=== PATIENT | male | born 1935 | race Caucasian/White ===

== ENCOUNTER 2024-06-08 18:36 | Inpatient (IN) ==
[2024-06-08 19:23] LABS: Hematocrit (blood only) 47.8 % (42.0-52.0); Hemoglobin 16.4 g/dl (14.0-18.0); Mean Corpuscular Hemoglobin 31.8 pg (25.0-34.0); Mean Corpuscular Hgb Conc 34.3 g/dL (32.0-36.0); Mean Corpuscular Volume 92.6 fL (80.0-100.0); Mean Platelet Volume 10.1 fL (9.4-12.4); Platelet Count 197 K/uL (130-400); RDW Coefficient of Variation 13.3 % (11.5-14.5); RDW Standard Deviation 45.2 fL (36.4-46.3); Red Blood Count 5.16 M/uL (4.70-6.10); White Blood Count 5.17 K/ul (4.8-10.8)
[2024-06-08 19:49] LABS: Partial Thromboplastin Time 26 Seconds (21-31); Prothrombin Time 10.8 Seconds (9.0-12.0)
[2024-06-08 19:52] LABS: Alanine Aminotransferase 20 U/L (7-52); Albumin Globulin Ratio 1.6 (0.9-2); Albumin Level 4.2 gm/dl (3.4-5.0); Alkaline Phosphatase 80 U/L (34-104); Anion Gap 7 (3-11); BUN Creatinine Ratio 26.2 (10-20); Bilirubin,Total 0.7 mg/dl (0.2-1.0); Blood Urea Nitrogen 28 mg/dl (6-23); Calcium 9.5 mg/dl (8.6-10.3); Carbon Dioxide 27 mmol/L (21-32); Chloride 95 mmol/L (98-107); Globulin 2.7 gm/dl (2.5-4.0); Glucose 373 mg/dl (70-99(Fasting)); Sodium 129 mmol/L (136-145); Total Protein 6.9 gm/dl (6.0-8.3)
[2024-06-08 23:30] LABS: Potassium 4.6 mmol/L (3.5-5.1)
--- NOTE | 2024-06-08 23:41 | CT Scan Report ---
Exam(s): CT HEAD Without Contrast EXAM: CT Head Without Intravenous Contrast CLINICAL HISTORY: Reason for exam: Neuro deficit, acute, stroke suspected. TECHNIQUE: Axial computed tomography images of the head/brain without intravenous contrast. CTDI is 35.65 mGy and DLP is 624.41 mGy-cm. Automated exposure control was utilized for the study. A dose lowering technique was utilized adhering to the principles of ALARA. COMPARISON: Head CT 08/05/2023 FINDINGS: Brain: No intracranial hemorrhage, mass-effect, or cerebral edema. Global parenchymal atrophy. Periventricular low-attenuation likely representing chronic microvascular ischemic changes. Chronic infarcts within the right cerebellum. Ventricles: Unremarkable. Bones/joints: Unremarkable. No fracture. Soft tissues: Unremarkable. Sinuses: No acute sinusitis. Mastoid air cells: Unremarkable as visualized. IMPRESSION: 1. No acute intracranial abnormality. Electronically signed by: Tramaine Sow MD 06/08/24 23:40 PM
[2024-06-08] MEDS: SODIUM CHLORIDE 0.9% 1,000 ML IV SCH (23:44)
[2024-06-09] MEDS: NovoLIN-R INSULIN PER UNIT CHARGE IV STA (00:41)
[2024-06-09] MEDS ORDERED: DEXTROSE 50% 50 ML SYRINGE IV PRN (02:56)
[2024-06-09] MEDS ORDERED: GLUCOSE 10 TAB/TUBE PO PRN (02:56)
[2024-06-09] MEDS ORDERED: PHARMACIST DISCHARGE MED REC CONSULT PRN (02:56)
[2024-06-09] MEDS ORDERED: CARBOHYDRATES FOR HYPOGLYCEMIA PO PRN (02:56)
[2024-06-09] MEDS ORDERED: GLUCAGON FOR INJ 1 MG VIAL SQ PRN (02:56)
[2024-06-09] MEDS ORDERED: GLUCOSE 40% GEL 15 GM TUBE PO PRN (02:56)
--- NOTE | 2024-06-09 03:24 | Emergency Department Note ---
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 He states he is having difficulty with his grasp. He woke up feeling that the arm was numb, and has not really changed for most of the day. He is able to use the left hand to grab things however he has to focus and does not feel that his drop wire hanger strength is at baseline. He does have some limited range of motion of the left shoulder. He does not have any facial weakness or speech difficulty. He denies any confusion, recent falls or injuries. REVIEW OF SYSTEMS: A review of systems was performed with positives and pertinent negatives listed in the history of present illness. 10 systems were reviewed and are otherwise negative. ALLERGIES: see below MEDICATIONS: see below PMH: see below SOCIAL HISTORY: see below DDx: Stroke, TIA, brachial plexus injury, arthritis, intracranial hemorrhage, intracranial mass, seizure among others. PHYSICAL EXAM: Vital signs reviewed. General: Well-appearing 88 yo male, in no significant distress. HEENT: No scleral icterus, PERRLA, neck supple. Atraumatic. Cardiovascular: Regular rate and rhythm, no extra sounds. Pulmonary: Clear to auscultation bilaterally, normal work of breathing. Abdomen: Soft, nontender, nondistended, positive bowel sounds. Musculoskeletal: Atraumatic, no peripheral edema. Neurologic: Patient awake alert and oriented x 3, speech is deliberate but clear. Intact finger to nose, negative pronator drift. Slight decrease drop wire hanger strength on L, but otherwise equal strength in 4 extremities. Skin: Warm, dry, no rash EMERGENCY DEPARTMENT COURSE/MDM: This pt was evaluated and appeared to be in no distress. IV access was obtained and lab work was drawn. Pt was placed on the child monitor and noted to be in a NSR w first degree AV block. CXR reveals nothing acute, but the R infrahilar mass is again noted. Head CT is negative for acute process. CXR is significant for R lung mass. EKG reveals no acute ischemia. Pt's story is concerning for TIA vs stroke. He does not appear to be a thrombolytic candidate at this time as symptoms are largely improved and are limited to L slight drop wire hanger strength. I did explain my findings and recommendations for hospitalization, which pt has agreed to. Pt will be evaluated by the hospitalist service for further management. MONITORING: An order for cardiac monitoring was placed and the patient is noted to be in a beats per minute. RADIOLOGY: CXR to my interpretation and rad overread is negative for acute process, R lung mass noted. IMPRESSION: 1. No acute cardiopulmonary findings. 2. Redemonstration of a right infrahilar mass-like opacity which corresponds to the known neoplasm, better depicted on prior PET/CT. CT head: IMPRESSION: 1. No acute intracranial abnormality. EKG: to my interpretation reveals a sinus rhythm with first degree AV block at 74 bpm. Previous inf infarct noted. QTc 424. 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" Dry eye syndrome Prostate cancer Sleep apnea Coronary artery disease Hyperlipidemia Melanoma Hypertension Diabetes Surgical History History of hemorrhoidectomy H/O right inguinal hernia repair S/P colonoscopy History of cataract surgery Bilateral S/P appendectomy History of tonsillectomy History of surgery Surgery both eyes for "droopy eyes" H/O prostatectomy History of cholecystectomy History of open heart surgery Triple bypass surgery Status post Mohs surgery 09/30/21 H/O angioplasty Family History Mother , in her 90s Fall Stroke associated with fall Father , in his 60s Lung cancer Smoker Brother Myocardial infarction Son No problems noted. 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 Feels Safe at Home: Yes Diet: regular caffeine: Yes (2 cups/day - decaf) during the past year weight has: remained stable Assistive Devices: Walker Allergies Allergies Allergy/AdvReac Type Severity Reaction Status Date / Time morphine Allergy Unknown Verified 06/08/24 23:31 Home Meds Home Medications Medication Instructions Recorded Confirmed atorvastatin 10 mg tablet 10 mg PO DAILY 09/08/23 06/08/24 metoprolol succinate 25 mg 25 mg PO DAILY 09/08/23 06/08/24 tablet,extended release 24 hr ganciclovir 0.15 % eye gel (Zirgan) 1 drp ophthalmic (eye) HS 10/04/23 06/08/24 metformin 500 mg tablet 500 mg PO TID 10/04/23 06/08/24 nateglinide 60 mg tablet 60 mg PO TID 10/04/23 06/08/24 nitroglycerin 0.4 mg sublingual 0.4 mg sublingual Q5M PRN Chest 10/04/23 06/08/24 tablet Pain timolol 0.5 % eye drops 1 drp OPL BID 10/04/23 06/08/24 cetirizine 10 mg capsule (Zyrtec) 10 mg PO DAILY 03/06/24 06/08/24 lisinopril 10 mg tablet 10 mg PO DAILY 03/06/24 06/08/24 aspirin 325 mg tablet 325 mg PO DAILY 06/08/24 06/08/24 famciclovir 500 mg tablet 500 mg PO DAILY 06/08/24 06/08/24 Results & Data (ED) Vital Signs Vital Signs - 24 hr 06/10/24 10:52 06/10/24 10:52 06/10/24 15:03 Temperature 36.5 C Temperature Source Oral Pulse Rate 79 Pulse Rate [Apical] 82 Respiratory Rate 19 Blood Pressure [Left Arm] 101/66 Blood Pressure Mean [Left Arm] 77 Blood Pressure Position [Left Arm] Lying Pulse Oximetry 90 Oxygen Delivery Method Room Air EWS Level of Consciousness - Last Result Spontaneously Alert EWS Temperature - Last Result 36.4 EWS Respiratory Rate - Last Result 18 EWS Oxygen Saturation - Last Result 95 EWS Oxygen in Use - Last Result No EWS Score 2 EWS Clinical Risk Low Risk 06/10/24 15:50 06/10/24 15:50 Temperature 36.5 C Temperature Source Oral Pulse Rate Pulse Rate [Apical] 81 Respiratory Rate 19 Blood Pressure [Left Arm] 126/77 Blood Pressure Mean [Left Arm] 93 Blood Pressure Position [Left Arm] Lying Pulse Oximetry 96 Oxygen Delivery Method Room Air EWS Level of Consciousness - Last Result Spontaneously Alert EWS Temperature - Last Result 36.5 EWS Respiratory Rate - Last Result 19 EWS Oxygen Saturation - Last Result 90 EWS Oxygen in Use - Last Result No EWS Score 4 EWS Clinical Risk Moderate Risk Home Medications Current Medication List: was personally reviewed by me Laboratory Data Attestation: I reviewed the patient's lab results. 06/11/24 06:19 06/11/24 06:19 Lab Results 06/08/24 06/08/24 06/08/24 Range/Units 19:04 22:46 23:41 WBC 5.17 (4.8-10.8) K/ul RBC 5.16 (4.70-6.10) M/uL Hgb 16.4 (14.0-18.0) g/dl Hct 47.8 (42.0-52.0) % MCV 92.6 (80.0-100.0) fL MCH 31.8 (25.0-34.0) pg MCHC 34.3 (32.0-36.0) g/dL RDW Std Deviation 45.2 (36.4-46.3) fL RDW Coeff of Courtney 13.3 (11.5-14.5) % Plt Count 197 (130-400) K/uL MPV 10.1 (9.4-12.4) fL Immature Gran % (Auto) % Neut % (Auto) % Lymph % (Auto) % Dickson % (Auto) % Eos % (Auto) % Baso % (Auto) % Neut # (Auto) (1.40-6.50) K/uL Lymph # (Auto) (1.20-3.40) K/uL Dickson # (Auto) (0.11-0.59) K/uL Eos # (Auto) (0.00-0.50) K/uL Baso # (Auto) (0.00-0.20) K/uL Immature Gran # (Auto) (0.01-0.20) K/uL PT 10.8 (9.0-12.0) Seconds INR 1.0 (0.9-1.1) APTT 26 (21-31) Seconds PTT Ratio 1.0 Sodium 129 L (136-145) mmol/L Potassium TNP 4.6 Chloride 95 L (98-107) mmol/L Carbon Dioxide 27 (21-32) mmol/L Anion Gap 7 (3-11) BUN 28 H (6-23) mg/dl Creatinine 1.07 (0.6-1.4) mg/dl Est Cr Clr Drug Dosing Not Reportable eGFR 67.58 BUN/Creatinine Ratio 26.2 H (10-20) Glucose 373 H* (70-99(Fasting)) mg/dl POC Glucose 257 H (70-99) mg/dl Estimat Average Glucose mg/dl Hemoglobin A1c (4.5-5.6) % Calcium 9.5 (8.6-10.3) mg/dl Magnesium 2.0 (1.7-2.4) mg/dl Total Bilirubin 0.7 (0.2-1.0) mg/dl AST TNP 18 ALT 20 (7-52) U/L Alkaline Phosphatase 80 (34-104) U/L Total Protein 6.9 (6.0-8.3) gm/dl Albumin 4.2 (3.4-5.0) gm/dl Globulin 2.7 (2.5-4.0) gm/dl Albumin/Globulin Ratio 1.6 (0.9-2) Triglycerides (0-150) mg/dl Cholesterol (0-200) mg/dl LDL Cholesterol, Calc mg/dl VLDL Cholesterol, Calc (0-30) mg/dl HDL Cholesterol mg/dl Cholesterol/HDL Ratio (0-5) 06/09/24 06/09/24 06/09/24 Range/Units 02:20 05:47 07:54 WBC 4.22 L (4.8-10.8) K/ul RBC 5.03 (4.70-6.10) M/uL Hgb 16.3 (14.0-18.0) g/dl Hct 45.6 (42.0-52.0) % MCV 90.7 (80.0-100.0) fL MCH 32.4 (25.0-34.0) pg MCHC 35.7 (32.0-36.0) g/dL RDW Std Deviation 43.6 (36.4-46.3) fL RDW Coeff of Courtney 13.2 (11.5-14.5) % Plt Count 174 (130-400) K/uL MPV 9.8 (9.4-12.4) fL Immature Gran % (Auto) 0.7 % Neut % (Auto) 52.6 % Lymph % (Auto) 25.1 % Dickson % (Auto) 16.1 % Eos % (Auto) 5.0 % Baso % (Auto) 0.5 % Neut # (Auto) 2.22 (1.40-6.50) K/uL Lymph # (Auto) 1.06 L (1.20-3.40) K/uL Dickson # (Auto) 0.68 H (0.11-0.59) K/uL Eos # (Auto) 0.21 (0.00-0.50) K/uL Baso # (Auto) 0.02 (0.00-0.20) K/uL Immature Gran # (Auto) 0.03 (0.01-0.20) K/uL PT (9.0-12.0) Seconds INR (0.9-1.1) APTT (21-31) Seconds PTT Ratio Sodium 137 (136-145) mmol/L Potassium 3.9 Chloride 100 (98-107) mmol/L Carbon Dioxide 30 (21-32) mmol/L Anion Gap 7 (3-11) BUN 23 (6-23) mg/dl Creatinine 0.95 (0.6-1.4) mg/dl Est Cr Clr Drug Dosing 61.3 eGFR 77.95 BUN/Creatinine Ratio 24.2 H (10-20) Glucose 210 H (70-99(Fasting)) mg/dl POC Glucose 195 H 192 H (70-99) mg/dl Estimat Average Glucose 209 mg/dl Hemoglobin A1c 8.9 H (4.5-5.6) % Calcium 9.2 (8.6-10.3) mg/dl Magnesium (1.7-2.4) mg/dl Total Bilirubin (0.2-1.0) mg/dl AST ALT (7-52) U/L Alkaline Phosphatase (34-104) U/L Total Protein (6.0-8.3) gm/dl Albumin (3.4-5.0) gm/dl Globulin (2.5-4.0) gm/dl Albumin/Globulin Ratio (0.9-2) Triglycerides 92 (0-150) mg/dl Cholesterol 85 (0-200) mg/dl LDL Cholesterol, Calc 32 mg/dl VLDL Cholesterol, Calc 18 (0-30) mg/dl HDL Cholesterol 35 mg/dl Cholesterol/HDL Ratio 2.4 (0-5) 06/09/24 06/09/24 06/09/24 Range/Units 11:38 16:21 20:10 WBC (4.8-10.8) K/ul RBC (4.70-6.10) M/uL Hgb (14.0-18.0) g/dl Hct (42.0-52.0) % MCV (80.0-100.0) fL MCH (25.0-34.0) pg MCHC (32.0-36.0) g/dL RDW Std Deviation (36.4-46.3) fL RDW Coeff of Courtney (11.5-14.5) % Plt Count (130-400) K/uL MPV (9.4-12.4) fL Immature Gran % (Auto) % Neut % (Auto) % Lymph % (Auto) % Dickson % (Auto) % Eos % (Auto) % Baso % (Auto) % Neut # (Auto) (1.40-6.50) K/uL Lymph # (Auto) (1.20-3.40) K/uL Dickson # (Auto) (0.11-0.59) K/uL Eos # (Auto) (0.00-0.50) K/uL Baso # (Auto) (0.00-0.20) K/uL Immature Gran # (Auto) (0.01-0.20) K/uL PT (9.0-12.0) Seconds INR (0.9-1.1) APTT (21-31) Seconds PTT Ratio Sodium (136-145) mmol/L Potassium Chloride (98-107) mmol/L Carbon Dioxide (21-32) mmol/L Anion Gap (3-11) BUN (6-23) mg/dl Creatinine (0.6-1.4) mg/dl Est Cr Clr Drug Dosing eGFR BUN/Creatinine Ratio (10-20) Glucose (70-99(Fasting)) mg/dl POC Glucose 243 H 137 H 197 H (70-99) mg/dl Estimat Average Glucose mg/dl Hemoglobin A1c (4.5-5.6) % Calcium (8.6-10.3) mg/dl Magnesium (1.7-2.4) mg/dl Total Bilirubin (0.2-1.0) mg/dl AST ALT (7-52) U/L Alkaline Phosphatase (34-104) U/L Total Protein (6.0-8.3) gm/dl Albumin (3.4-5.0) gm/dl Globulin (2.5-4.0) gm/dl Albumin/Globulin Ratio (0.9-2) Triglycerides (0-150) mg/dl Cholesterol (0-200) mg/dl LDL Cholesterol, Calc mg/dl VLDL Cholesterol, Calc (0-30) mg/dl HDL Cholesterol mg/dl Cholesterol/HDL Ratio (0-5) 06/10/24 06/10/24 06/10/24 Range/Units 06:04 08:28 11:44 WBC 4.61 L (4.8-10.8) K/ul RBC 4.84 (4.70-6.10) M/uL Hgb 15.5 (14.0-18.0) g/dl Hct 43.4 (42.0-52.0) % MCV 89.7 (80.0-100.0) fL MCH 32.0 (25.0-34.0) pg MCHC 35.7 (32.0-36.0) g/dL RDW Std Deviation 42.8 (36.4-46.3) fL RDW Coeff of Courtney 13.0 (11.5-14.5) % Plt Count 172 (130-400) K/uL MPV 9.9 (9.4-12.4) fL Immature Gran % (Auto) 0.4 % Neut % (Auto) 57.5 % Lymph % (Auto) 24.1 % Dickson % (Auto) 14.5 % Eos % (Auto) 3.3 % Baso % (Auto) 0.2 % Neut # (Auto) 2.65 (1.40-6.50) K/uL Lymph # (Auto) 1.11 L (1.20-3.40) K/uL Dickson # (Auto) 0.67 H (0.11-0.59) K/uL Eos # (Auto) 0.15 (0.00-0.50) K/uL Baso # (Auto) 0.01 (0.00-0.20) K/uL Immature Gran # (Auto) 0.02 (0.01-0.20) K/uL PT (9.0-12.0) Seconds INR (0.9-1.1) APTT (21-31) Seconds PTT Ratio Sodium 137 (136-145) mmol/L Potassium 3.8 Chloride 103 (98-107) mmol/L Carbon Dioxide 28 (21-32) mmol/L Anion Gap 6 (3-11) BUN 20 (6-23) mg/dl Creatinine 0.85 (0.6-1.4) mg/dl Est Cr Clr Drug Dosing 68.6 eGFR 84.62 BUN/Creatinine Ratio 23.5 H (10-20) Glucose 151 H (70-99(Fasting)) mg/dl POC Glucose 141 H 218 H (70-99) mg/dl Estimat Average Glucose mg/dl Hemoglobin A1c (4.5-5.6) % Calcium 9.0 (8.6-10.3) mg/dl Magnesium (1.7-2.4) mg/dl Total Bilirubin (0.2-1.0) mg/dl AST ALT (7-52) U/L Alkaline Phosphatase (34-104) U/L Total Protein (6.0-8.3) gm/dl Albumin (3.4-5.0) gm/dl Globulin (2.5-4.0) gm/dl Albumin/Globulin Ratio (0.9-2) Triglycerides (0-150) mg/dl Cholesterol (0-200) mg/dl LDL Cholesterol, Calc mg/dl VLDL Cholesterol, Calc (0-30) mg/dl HDL Cholesterol mg/dl Cholesterol/HDL Ratio (0-5) 06/10/24 Range/Units 16:36 WBC (4.8-10.8) K/ul RBC (4.70-6.10) M/uL Hgb (14.0-18.0) g/dl Hct (42.0-52.0) % MCV (80.0-100.0) fL MCH (25.0-34.0) pg MCHC (32.0-36.0) g/dL RDW Std Deviation (36.4-46.3) fL RDW Coeff of Courtney (11.5-14.5) % Plt Count (130-400) K/uL MPV (9.4-12.4) fL Immature Gran % (Auto) % Neut % (Auto) % Lymph % (Auto) % Dickson % (Auto) % Eos % (Auto) % Baso % (Auto) % Neut # (Auto) (1.40-6.50) K/uL Lymph # (Auto) (1.20-3.40) K/uL Dickson # (Auto) (0.11-0.59) K/uL Eos # (Auto) (0.00-0.50) K/uL Baso # (Auto) (0.00-0.20) K/uL Immature Gran # (Auto) (0.01-0.20) K/uL PT (9.0-12.0) Seconds INR (0.9-1.1) APTT (21-31) Seconds PTT Ratio Sodium (136-145) mmol/L Potassium Chloride (98-107) mmol/L Carbon Dioxide (21-32) mmol/L Anion Gap (3-11) BUN (6-23) mg/dl Creatinine (0.6-1.4) mg/dl Est Cr Clr Drug Dosing eGFR BUN/Creatinine Ratio (10-20) Glucose (70-99(Fasting)) mg/dl POC Glucose 206 H (70-99) mg/dl Estimat Average Glucose mg/dl Hemoglobin A1c (4.5-5.6) % Calcium (8.6-10.3) mg/dl Magnesium (1.7-2.4) mg/dl Total Bilirubin (0.2-1.0) mg/dl AST ALT (7-52) U/L Alkaline Phosphatase (34-104) U/L Total Protein (6.0-8.3) gm/dl Albumin (3.4-5.0) gm/dl Globulin (2.5-4.0) gm/dl Albumin/Globulin Ratio (0.9-2) Triglycerides (0-150) mg/dl Cholesterol (0-200) mg/dl LDL Cholesterol, Calc mg/dl VLDL Cholesterol, Calc (0-30) mg/dl HDL Cholesterol mg/dl Cholesterol/HDL Ratio (0-5) Administered Medications Clopidogrel Bisulfate (Clopidogrel Bisulfate 75 Mg Tab) 75 mg PO QAM TERRI Stop: 07/09/24 08:59 Last Admin: 06/11/24 08:36 Dose: 75 mg Documented By: Admin: 06/10/24 08:23 Dose: 75 mg Documented By: Admin: 06/09/24 09:09 Dose: 75 mg Documented By: CHRIS Insulin Aspart (Insulin Aspart Per Unit Charge) 0 units SC ACHS TERRI Stop: 07/09/24 07:29 Last Admin: 06/11/24 20:23 Dose: 4 units Documented By: MADELEINE Co-signed By: GABE Admin: 06/11/24 17:34 Dose: 3 units Documented By: Co-signed By: DANA Admin: 06/11/24 12:48 Dose: 3 units Documented By: Co-signed By: SHAUNNA Admin: 06/11/24 08:33 Dose: 6 units Documented By: Co-signed By: PAMELA Admin: 06/10/24 20:36 Dose: 2 units Documented By: MADELEINE Co-signed By: MIKE Admin: 06/10/24 17:00 Dose: 4 units Documented By: CHRIS Co-signed By: ANTOLIN Admin: 06/10/24 12:19 Dose: 6 units Documented By: CHRIS Co-signed By: EDGAR Admin: 06/10/24 08:51 Dose: 3 units Documented By: CHRIS Co-signed By: EDGAR Admin: 06/09/24 20:30 Dose: 2 units Documented By: MADELEINE Co-signed By: GABE Admin: 06/09/24 17:03 Dose: 3 units Documented By: CHRIS Co-signed By: ANTOLIN Admin: 06/09/24 12:04 Dose: 6 units Documented By: CHRIS Co-signed By: ANTOLIN Admin: 06/09/24 08:24 Dose: 5 units Documented By: CHRIS Co-signed By: HERO Insulin Glargine (Lantus Per Unit Charge) 5 units SQ BID TERRI Stop: 07/09/24 02:55 Last Admin: 06/11/24 20:23 Dose: 5 units Documented By: MADELEINE Co-signed By: GABE Admin: 06/11/24 08:33 Dose: 5 units Documented By: Co-signed By: PAMELA Admin: 06/10/24 20:37 Dose: 5 units Documented By: MADELEINE Co-signed By: MIKE Admin: 06/10/24 08:51 Dose: 5 units Documented By: CHRIS Co-signed By: EDGAR Admin: 06/09/24 20:30 Dose: 5 units Documented By: MADELEINE Co-signed By: GABE Admin: 06/09/24 08:23 Dose: 5 units Documented By: CHRIS Co-signed By: HERO Admin: 06/09/24 04:46 Dose: 5 units Documented By: VALORIE Co-signed By: DANNA Lynn (Order Awaiting Action: Famciclovir 500 Mg Tablet) 1 each N/A QS TERRI Stop: 07/09/24 07:59 Last Admin: 06/11/24 23:08 Dose: Not Given Documented By: Admin: 06/11/24 15:54 Dose: Not Given Documented By: Admin: 06/11/24 08:36 Dose: Not Given Documented By: Admin: 06/10/24 23:28 Dose: Not Given Documented By: Admin: 06/10/24 15:36 Dose: Not Given Documented By: Admin: 06/10/24 08:56 Dose: Not Given Documented By: Admin: 06/10/24 00:04 Dose: Not Given Documented By: Admin: 06/09/24 16:06 Dose: Not Given Documented By: Admin: 06/09/24 10:20 Dose: Not Given Documented By: CHRIS Lynn (Order Awaiting Action: Ganciclovir [Zirgan] 0.15 % Gel) 1 each N/A QS TERRI Stop: 07/09/24 07:59 Last Admin: 06/11/24 23:09 Dose: Not Given Documented By: TKTara Admin: 06/11/24 15:54 Dose: Not Given Documented By: Admin: 06/11/24 08:36 Dose: Not Given Documented By: Admin: 06/10/24 23:28 Dose: Not Given Documented By: Admin: 06/10/24 15:36 Dose: Not Given Documented By: Admin: 06/10/24 08:57 Dose: Not Given Documented By: Admin: 06/10/24 00:04 Dose: Not Given Documented By: Admin: 06/09/24 16:06 Dose: Not Given Documented By: Admin: 06/09/24 10:20 Dose: Not Given Documented By: CHRIS Polyethylene Glycol (Polyethylene (Miralax) 17 Gm Pack) 17 gm PO DAILY PRN PRN Reason: Constipation Stop: 07/11/24 19:08 Last Admin: 06/11/24 21:02 Dose: 17 gm Documented By: MADELEINE Senna/Docusate Sodium (Docusate Sodium/Senna 50/8.6mg Tab) 1 tab PO QAM [facility] Stop: 07/10/24 16:44 Last Admin: 06/11/24 08:51 Dose: 1 tab Documented By: Admin: 06/10/24 17:00 Dose: 1 tab Documented By: CHRIS Discontinued Medications Aspirin (Aspirin 81 Mg Ectab) 81 mg PO DAILY [facility] Stop: 07/09/24 08:59 Last Admin: 06/10/24 08:23 Dose: 81 mg Documented By: Admin: 06/09/24 09:10 Dose: 81 mg Documented By: CHRIS Atorvastatin Calcium (Atorvastatin 40 Mg Tab) 40 mg PO DAILY [facility] Stop: 07/09/24 08:59 Last Admin: 06/11/24 08:37 Dose: 40 mg Documented By: Admin: 06/10/24 08:23 Dose: 40 mg Documented By: Admin: 06/09/24 09:10 Dose: 40 mg Documented By: CHRIS Gadobutrol (Gadobutrol 65ml Vial) 8 ml IV ONCE ONE Stop: 06/09/24 10:04 Last Admin: 06/09/24 10:03 Dose: 8 ml Documented By: LATIA Sodium Chloride (Nss) 1,000 mls @ 80 mls/hr IV .[id number] [facility] Stop: 07/08/24 23:14 Last Infusion: 06/09/24 04:55 Dose: Infused Documented By: Admin: 06/08/24 23:44 Dose: 80 mls/hr Documented By: VALORIE Insulin Human Regular (Novolin-R Insulin Per Unit Charge) 6 units IV NOW STA Stop: 06/08/24 23:12 Last Admin: 06/09/24 00:41 Dose: 6 units Documented By: VALOIRE Co-signed By: JT Imaging Data Radiologist's Impression: Head CT 06/08/24 18:57 Exam(s): CT HEAD Without Contrast EXAM: CT Head Without Intravenous Contrast CLINICAL HISTORY: Reason for exam: Neuro deficit, acute, stroke suspected. TECHNIQUE: Axial computed tomography images of the head/brain without intravenous contrast. CTDI is 35.65 mGy and DLP is 624.41 mGy-cm. Automated exposure control was utilized for the study. A dose lowering technique was utilized adhering to the principles of ALARA. COMPARISON: Head CT 08/05/2023 FINDINGS: Brain: No intracranial hemorrhage, mass-effect, or cerebral edema. Global parenchymal atrophy. Periventricular low-attenuation likely representing chronic microvascular ischemic changes. Chronic infarcts within the right cerebellum. Ventricles: Unremarkable. Bones/joints: Unremarkable. No fracture. Soft tissues: Unremarkable. Sinuses: No acute sinusitis. Mastoid air cells: Unremarkable as visualized. IMPRESSION: 1. No acute intracranial abnormality. Electronically signed by: Tramaine Sow MD 06/08/24 23:40 PM Discharge Plan Visit Data Chief Complaint: TIA Symptoms Stated Complaint: LOW BLOODPRESSURE, LOW OX, LT HAND ED Provider: Mia Addison Discharge Problem: Stroke-like symptoms Patient Disposition: Admitted As Inpatient Discharge Instructions Interventions: ED Discharge Assessment Last Done: 06/09/24 04:53
--- NOTE | 2024-06-09 03:50 | History & Physical Report ---
Date of Service June 09, 2024 Assessment & Plan (1) Stroke-like symptom: Plan: 88yo male with history of HTN, HLP, DM and CAD presenting with weakness of left hand. Remainder of neurological exam is unremarkable Concern for possible CVA vs peripheral radiculopathy -Observation to medical with telemetry -Neuro checks and NIHSS per protocol -Check MRI brain -Check 2D echo -Lipid panel and HgbA1C -PT/OT evaluation -Continue ASA - will change from 325mg daily to 81mg daily -Plavix 75mg daily -Increase Atorvastatin to 40mg daily Plan Chronic Medical Conditions: HTN -Hold antihypertensive agents, Lisinopril, Metoprolol Diabetes -Hold Metformin and Nateglinide -Lantus 5u BID -ISS Admission and Anticipated Discharge Date Admission Date: June 09, 2024 History of Present Illness Chief Complaint: left hand numbness Primary Care Provider: Juan Alberto Valdez MD Marcio Carcamo is a pleasant 88yo right-hand dominant male with history of HTN, HLP, DM and CAD presenting from home with left hand weakness. Patient woke this AM and reports his left hand felt numb and weak. He was unable to hold onto anything. He was in his usual state of health with no deficits last night upon going to bed. No pain in the hand, no trauma. In the ER patient is afebrile, HD stable, NAD Allergies Allergy/AdvReac Type Severity Reaction Status Date / Time morphine Allergy Unknown Verified 06/08/24 23:31 Home Medications Medication Instructions Recorded Confirmed Type atorvastatin 10 mg tablet 10 mg PO DAILY 09/08/23 06/08/24 History metoprolol succinate 25 mg 25 mg PO DAILY 09/08/23 06/08/24 History tablet,extended release 24 hr ganciclovir 0.15 % eye gel (Zirgan) 1 drp ophthalmic (eye) HS 10/04/23 06/08/24 History metformin 500 mg tablet 500 mg PO TID 10/04/23 06/08/24 History nateglinide 60 mg tablet 60 mg PO TID 10/04/23 06/08/24 History nitroglycerin 0.4 mg sublingual 0.4 mg sublingual Q5M PRN Chest 10/04/23 06/08/24 History tablet Pain timolol 0.5 % eye drops 1 drp OPL BID 10/04/23 06/08/24 History cetirizine 10 mg capsule (Zyrtec) 10 mg PO DAILY 03/06/24 06/08/24 History lisinopril 10 mg tablet 10 mg PO DAILY 03/06/24 06/08/24 History aspirin 325 mg tablet 325 mg PO DAILY 06/08/24 06/08/24 History famciclovir 500 mg tablet 500 mg PO DAILY 06/08/24 06/08/24 History Past Med/Surg History Problem List (Updated 06/09/24 @ 03:56 by Stella Boyce DO) Stroke-like symptom 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) S/P bronchoscopy 09/08/23 Carcinoid tumor determined by biopsy of lung 09/08/23 Lung mass Medical History Glaucoma 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" Dry eye syndrome Prostate cancer Sleep apnea Coronary artery disease Hyperlipidemia Melanoma Hypertension Diabetes Surgical History History of hemorrhoidectomy H/O right inguinal hernia repair S/P colonoscopy History of cataract surgery Bilateral S/P appendectomy History of tonsillectomy History of surgery Surgery both eyes for "droopy eyes" H/O prostatectomy History of cholecystectomy History of open heart surgery Triple bypass surgery Status post Mohs surgery 09/30/21 H/O angioplasty Family History Mother , in her 90s Fall Stroke associated with fall Father , in his 60s Lung cancer Smoker Brother Myocardial infarction Son No problems noted. 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 Feels Safe at Home: Yes Diet: regular caffeine: Yes (2 cups/day - decaf) during the past year weight has: remained stable Assistive Devices: Cane Review of Systems Review of Systems: All systems reviewed & are unremarkable except as noted in HPI & below Physical Exam Physical Exam: General: patient resting comfortably, NAD, non-toxic in appearance, AA&O x 4 Skin: warm, dry, intact, no rashes or lesions HEENT: NC/AT, PERRL, EOMI, anicteric sclera, conjunctiva without injection, external ear normal to inspection and nontender, nares patent, moist mucus membranes, dentition intact, no oropharyngeal lesions, neck supple, trachea midline, no LAD, no thyromegaly, no JVD Heart: +S1/S2, regular, no m/r/g Lungs: equal air entry bilaterally, no rales/rhonchi/wheezes Abd: +BS, soft, NT/ND, no masses/organomegaly/ascites Ext: warm, 2+ pulses in UE/LE bilaterally, no clubbing/cyanosis or edema Neuro: nonfocal, patient AA&O x 4, speech intact, no facial droop, moving all extremities on command, 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/5, decreased strength with finger ADduction and ABduction 4/5 Results & Data Results & Data Vital Signs (Past 12 Hours) Vital Signs Temp Pulse Pulse Resp BP BP Pulse Ox 06/09/24 03:01 68 18 131/84 94 06/09/24 02:50 77 06/09/24 02:00 67 16 135/76 94 06/09/24 01:00 65 14 136/77 96 06/09/24 00:30 55 L 12 138/77 06/09/24 00:00 63 12 123/80 96 06/08/24 23:50 95 06/08/24 23:30 63 14 127/80 95 06/08/24 23:00 65 18 134/83 06/08/24 22:46 66 18 148/76 H 96 06/08/24 22:41 61 06/08/24 18:47 36.2 C L 70 19 117/77 97 O2 Del Method 06/09/24 03:01 Room Air 06/09/24 02:50 06/09/24 02:00 Room Air 06/09/24 01:00 06/09/24 00:30 06/09/24 00:00 06/08/24 23:50 Room Air 06/08/24 23:30 06/08/24 23:00 06/08/24 22:46 Room Air 06/08/24 22:41 06/08/24 18:47 Room Air Laboratory Results Laboratory Results WBC 5.17 K/ul (4.8-10.8) 06/08/24 19:04 RBC 5.16 M/uL (4.70-6.10) 06/08/24 19:04 Hgb 16.4 g/dl (14.0-18.0) 06/08/24 19:04 Hct 47.8 % (42.0-52.0) 06/08/24 19:04 MCV 92.6 fL (80.0-100.0) 06/08/24 19:04 MCH 31.8 pg (25.0-34.0) 06/08/24 19:04 MCHC 34.3 g/dL (32.0-36.0) 06/08/24 19:04 RDW Std Deviation 45.2 fL (36.4-46.3) 06/08/24 19:04 RDW Coeff of Courtney 13.3 % (11.5-14.5) 06/08/24 19:04 Plt Count 197 K/uL (130-400) 06/08/24 19:04 MPV 10.1 fL (9.4-12.4) 06/08/24 19:04 PT 10.8 Seconds (9.0-12.0) 06/08/24 19:04 INR 1.0 (0.9-1.1) 06/08/24 19:04 APTT 26 Seconds (21-31) 06/08/24 19:04 PTT Ratio 1.0 06/08/24 19:04 Sodium 129 mmol/L (136-145) L 06/08/24 19:04 Potassium 4.6 mmol/L (3.5-5.1) 06/08/24 22:46 Chloride 95 mmol/L (98-107) L 06/08/24 19:04 Carbon Dioxide 27 mmol/L (21-32) 06/08/24 19:04 Anion Gap 7 (3-11) 06/08/24 19:04 BUN 28 mg/dl (6-23) H 06/08/24 19:04 Creatinine 1.07 mg/dl (0.6-1.4) 06/08/24 19:04 Est Cr Clr Drug Dosing Not Reportable 06/08/24 19:04 eGFR 67.58 06/08/24 19:04 BUN/Creatinine Ratio 26.2 (10-20) H 06/08/24 19:04 Glucose 373 mg/dl (70-99(Fasting)) H* 06/08/24 19:04 POC Glucose 195 mg/dl (70-99) H 06/09/24 02:20 Calcium 9.5 mg/dl (8.6-10.3) 06/08/24 19:04 Magnesium 2.0 mg/dl (1.7-2.4) 06/08/24 19:04 Total Bilirubin 0.7 mg/dl (0.2-1.0) 06/08/24 19:04 AST 18 U/L (13-39) 06/08/24 22:46 ALT 20 U/L (7-52) 06/08/24 19:04 Alkaline Phosphatase 80 U/L (34-104) 06/08/24 19:04 Total Protein 6.9 gm/dl (6.0-8.3) 06/08/24 19:04 Albumin 4.2 gm/dl (3.4-5.0) 06/08/24 19:04 Globulin 2.7 gm/dl (2.5-4.0) 06/08/24 19:04 Albumin/Globulin Ratio 1.6 (0.9-2) 06/08/24 19:[address] 06/08/24 18:57 Exam(s): CT HEAD Without Contrast EXAM: CT Head Without Intravenous Contrast CLINICAL HISTORY: Reason for exam: Neuro deficit, acute, stroke suspected. TECHNIQUE: Axial computed tomography images of the head/brain without intravenous contrast. CTDI is 35.65 mGy and DLP is 624.41 mGy-cm. Automated exposure control was utilized for the study. A dose lowering technique was utilized adhering to the principles of ALARA. COMPARISON: Head CT 08/05/2023 FINDINGS: Brain: No intracranial hemorrhage, mass-effect, or cerebral edema. Global parenchymal atrophy. Periventricular low-attenuation likely representing chronic microvascular ischemic changes. Chronic infarcts within the right cerebellum. Ventricles: Unremarkable. Bones/joints: Unremarkable. No fracture. Soft tissues: Unremarkable. Sinuses: No acute sinusitis. Mastoid air cells: Unremarkable as visualized. IMPRESSION: 1. No acute intracranial abnormality. Electronically signed by: Tramaine Sow MD 06/08/24 23:40 PM Code Status & VTE Plan VTE Prophylaxis Plan VTE Prophylaxis will be ordered: Yes PG Care Time/CCT Total # of Minutes Spent Total Time Spent with Patient: Total time spent is greater than 50% in coordination of care (as documented) at patient's floor/unit and/or counseling patient: Coding Level of Care Code 51581 INT INP/OBS CARE 2/55MIN Diagnoses Stroke-like symptom R29.90
[2024-06-09] MEDS: LANTUS PER UNIT CHARGE SQ SCH (04:46)
[2024-06-09 06:31] LABS: Basophils # (auto) 0.02 K/uL (0.00-0.20); Basophils % (auto) 0.5 %; Eosinophils # (auto) 0.21 K/uL (0.00-0.50); Hematocrit (blood only) 45.6 % (42.0-52.0); Hemoglobin 16.3 g/dl (14.0-18.0); Immature Granulocytes # (auto) 0.03 K/uL (0.01-0.20); Immature Granulocytes % (auto) 0.7 %; Lymphocytes # (auto) 1.06 K/uL (1.20-3.40); Lymphocytes % (auto) 25.1 %; Mean Corpuscular Hemoglobin 32.4 pg (25.0-34.0); Mean Corpuscular Hgb Conc 35.7 g/dL (32.0-36.0); Mean Corpuscular Volume 90.7 fL (80.0-100.0); Mean Platelet Volume 9.8 fL (9.4-12.4); Monocytes # (auto) 0.68 K/uL (0.11-0.59); Monocytes % (auto) 16.1 %; Neutrophils # (auto) 2.22 K/uL (1.40-6.50); Neutrophils % (auto) 52.6 %; Platelet Count 174 K/uL (130-400); RDW Coefficient of Variation 13.2 % (11.5-14.5); RDW Standard Deviation 43.6 fL (36.4-46.3); Red Blood Count 5.03 M/uL (4.70-6.10); White Blood Count 4.22 K/ul (4.8-10.8)
[2024-06-09 06:51] LABS: BUN Creatinine Ratio 24.2 (10-20); Calcium 9.2 mg/dl (8.6-10.3); Chol HDL Ratio 2.4 (0-5); Creatinine Clr Calc Pharmacy 61.3 ml/min; Potassium 3.9 mmol/L (3.5-5.1)
[2024-06-09 07:23] LABS: Estimated Average Glucose 209 mg/dl; Hemoglobin A1C 8.9 % (4.5-5.6)
--- NOTE | 2024-06-09 08:20 | XRay Report ---
XR chest 1V portable CLINICAL HISTORY: stroke alert COMPARISON STUDY: Chest CT March 28, 2024. PET/CT May 28, 2024. FINDINGS: No pneumothorax or pleural effusion is present. There are median sternotomy wires and media stinal surgical clips. Cardiomediastinal silhouette is stable. Mass-like right infrahilar opacity is again noted. IMPRESSION: 1. No acute cardiopulmonary findings. 2. Redemonstration of a right infrahilar mass-like opacity which corresponds to the known neoplasm, b ike depicted on prior PET/CT. ACT 112: Negative or not required by law. Electronically signed by: Guicho Laurent M.D. 06/09/2024 8:18 AM
[2024-06-09] MEDS: INSULIN ASPART PER UNIT CHARGE SC SCH (08:24)
[2024-06-09] MEDS ORDERED: ASPIRIN 325 MG ECTAB PO SCH (09:00)
[2024-06-09] MEDS: CLOPIDOGREL BISULFATE 75 MG TAB PO SCH (09:09)
[2024-06-09] MEDS: ATORVASTATIN 40 MG TAB PO SCH (09:10)
[2024-06-09] MEDS: ASPIRIN 81 MG ECTAB PO SCH (09:10)
[2024-06-09] MEDS: GADOBUTROL 65ML VIAL IV ONE (10:03)
--- NOTE | 2024-06-09 10:41 | Magnetic Resonance Report ---
MRI OF THE BRAIN WITHOUT AND WITH IV CONTRAST CLINICAL HISTORY: ?CVA COMPARISON STUDY: Head CT June 08, 2024. TECHNIQUE: Utilizing a 1.5 Caitlyn magnet and dedicated coil, multiplanar, multiecho imaging of the br ain was performed pre and postcontrast administration. IV administration of Gadavist contrast was un eventful. Thin cut T1 post contrast imaging was performed. FINDINGS: There are a few small foci of restricted diffusion within the posterior right frontal lobe and anterior right parietal lobe, measuring up to 8 mm. These are hypointense on the ADC map and repr esent small acute infarcts. There is no mass effect or evidence for hemorrhagic conversion. Mild vent ricular dilatation is due to central atrophy. There are several old right cerebellar infarct. Matter T2 hyperintense foci suggest small vessel disease. There is no intracranial mass or pathologic enhanc ement. There are no calvarial lesions. There is no evidence for sinusitis. There is no mastoid fluid. Moderate atrophy is noted. IMPRESSION: 1. Several small acute infarcts, measuring up to 8 mm, within the posterior right frontal and anterio r right parietal lobes. No mass effect. No evidence for hemorrhagic conversion. 2. No intracranial mass or pathologic enhancement. ACT 112: Negative or not required by law. Electronically signed by: Guicho Laurent M.D. 06/09/2024 10:38 AM
--- NOTE | 2024-06-09 10:57 | Electrocardiogram Report ---
Test Reason : Blood Pressure : */* mmHG Vent. Rate : 74 BPM Atrial Rate : 74 BPM P-R Int : 210 ms QRS Dur : 80 ms QT Int : 382 ms P-R-T Axes : 43 -9 23 degrees QTcB Int : 424 ms Sinus rhythm with 1st degree A-V block Inferior infarct (cited on or before 05-Aug-2023) Abnormal ECG When compared with ECG of 05-Aug-2023 20:04, No significant change was found Confirmed by Joselito Burrell ([id number]) on 06/09/2024 10:57:14 AM Referred By: REFERRED SELF Confirmed By: Joselito Burrell
--- NOTE | 2024-06-09 16:43 | Communication Note ---
Date of Service: June 09, 2024 MRI confirms small stroke which would explain his left hand weakness. d/w neurology. Await echo. likely discharge tomorrow.
--- NOTE | 2024-06-09 19:25 | XCELERA ---
[id number]
[2024-06-10 06:38] LABS: Basophils # (auto) 0.01 K/uL (0.00-0.20); Basophils % (auto) 0.2 %; Eosinophils # (auto) 0.15 K/uL (0.00-0.50); Eosinophils % (auto) 3.3 %; Hematocrit (blood only) 43.4 % (42.0-52.0); Hemoglobin 15.5 g/dl (14.0-18.0); Immature Granulocytes # (auto) 0.02 K/uL (0.01-0.20); Immature Granulocytes % (auto) 0.4 %; Lymphocytes # (auto) 1.11 K/uL (1.20-3.40); Lymphocytes % (auto) 24.1 %; Mean Corpuscular Hgb Conc 35.7 g/dL (32.0-36.0); Mean Corpuscular Volume 89.7 fL (80.0-100.0); Mean Platelet Volume 9.9 fL (9.4-12.4); Monocytes # (auto) 0.67 K/uL (0.11-0.59); Monocytes % (auto) 14.5 %; Neutrophils # (auto) 2.65 K/uL (1.40-6.50); Neutrophils % (auto) 57.5 %; Platelet Count 172 K/uL (130-400); RDW Standard Deviation 42.8 fL (36.4-46.3); Red Blood Count 4.84 M/uL (4.70-6.10); White Blood Count 4.61 K/ul (4.8-10.8)
[2024-06-10 06:56] LABS: BUN Creatinine Ratio 23.5 (10-20); Creatinine Clr Calc Pharmacy 68.6 ml/min; Potassium 3.8 mmol/L (3.5-5.1)
--- NOTE | 2024-06-10 13:16 | Pharmacy Report ---
- Date of Service June 10, 2024 - Pharmacy CVA/TIA Medication Review Medications to Prevent Stroke handout has been added to the patients discharge packet. Antiplatelet(s) * Clopidogrel Cholesterol * High intensity statin: atorvastatin 40 mg daily DVT Prophylaxis * SCD knee Therapeutic Anticoagulation * No history of Afib/Aflutter noted Type 2 Diabetes * Patient has T2DM, but per Dr. Ramirez, a diabetes medication with proven CVD benefit will be deferred to their outpatient provider due to familiarity with risks/benefits of such therapies. "Medications to prevent stroke" handout has already been added to the patient's discharge packet, which instructs the patient to follow up with their outpatient provider to evaluate which diabetes medication with proven CVD benefit is best for them
[2024-06-10] MEDS: DOCUSATE SODIUM/SENNA 50/8.6MG TAB PO SCH (17:00)
--- NOTE | 2024-06-10 22:11 | Hospitalist Progress Note ---
Date of Service June 10, 2024 Assessment & Plan (1) Stroke-like symptom: Plan: 88yo male with history of HTN, HLP, DM and CAD presenting with weakness of left hand. Remainder of neurological exam is unremarkable Concern for possible CVA vs peripheral radiculopathy -Observation to medical with telemetry -Neuro checks and NIHSS per protocol -Check MRI brain -Check 2D echo -Lipid panel and HgbA1C -PT/OT evaluation -discussed with neurologist: will stop ASA and only use plavix. -Plavix 75mg daily - LDL is at goal, to limit risk of cerebral hemorrhage, will resume previous dose of atorvastatin Plan Chronic Medical Conditions: HTN -Hold antihypertensive agents, Lisinopril, Metoprolol Diabetes -Hold Metformin and Nateglinide -Lantus 5u BID -ISS Admission and Anticipated Discharge Date Admission Date: June 10, 2024 Subjective 88 yo male reports no new symptoms. Review of Systems Review of Systems: All systems reviewed & are unremarkable except as noted in HPI & below Physical Exam Physical Exam: General: patient resting comfortably, NAD, non-toxic in appearance, AA&O x 4 Skin: warm, dry, intact, no rashes or lesions HEENT: NC/AT, PERRL, EOMI, anicteric sclera, conjunctiva without injection, external ear normal to inspection and nontender, nares patent, moist mucus membranes, dentition intact, no oropharyngeal lesions, neck supple, trachea midline, no LAD, no thyromegaly, no JVD Heart: +S1/S2, regular, no m/r/g Lungs: equal air entry bilaterally, no rales/rhonchi/wheezes Abd: +BS, soft, NT/ND, no masses/organomegaly/ascites Ext: warm, 2+ pulses in UE/LE bilaterally, no clubbing/cyanosis or edema Neuro: nonfocal, patient AA&O x 4, speech intact, no facial droop, moving all extremities on command, 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, decreased strength with finger ADduction and ABduction 4/5 Results & Data Results & Data Vital Signs (Past 12 Hours) Vital Signs Temp Pulse Pulse Resp BP Pulse Ox O2 Del Method 06/10/24 19:07 36.4 C L 82 17 121/81 93 Room Air 06/10/24 15:50 36.5 C 81 19 126/77 96 Room Air 06/10/24 15:03 79 06/10/24 10:52 36.5 C 82 19 101/66 90 Room Air PG Care Time/CCT Total # of Minutes Spent Total Time Spent with Patient: Total time spent is greater than 50% in coordination of care (as documented) at patient's floor/unit and/or counseling patient: Coding Level of Care Code 01153 SUB INP/OBS CARE 2/35MIN Diagnoses Stroke-like symptom R29.90
[2024-06-11 07:03] LABS: Basophils # (auto) 0.02 K/uL (0.00-0.20); Basophils % (auto) 0.4 %; Eosinophils # (auto) 0.13 K/uL (0.00-0.50); Eosinophils % (auto) 2.7 %; Hematocrit (blood only) 42.4 % (42.0-52.0); Hemoglobin 15.4 g/dl (14.0-18.0); Immature Granulocytes # (auto) 0.03 K/uL (0.01-0.20); Immature Granulocytes % (auto) 0.6 %; Lymphocytes # (auto) 1.19 K/uL (1.20-3.40); Lymphocytes % (auto) 24.7 %; Mean Corpuscular Hemoglobin 32.5 pg (25.0-34.0); Mean Corpuscular Hgb Conc 36.3 g/dL (32.0-36.0); Mean Corpuscular Volume 89.5 fL (80.0-100.0); Mean Platelet Volume 10.1 fL (9.4-12.4); Monocytes # (auto) 0.74 K/uL (0.11-0.59); Monocytes % (auto) 15.4 %; Neutrophils % (auto) 56.2 %; Platelet Count 184 K/uL (130-400); RDW Coefficient of Variation 12.8 % (11.5-14.5); RDW Standard Deviation 42.3 fL (36.4-46.3); Red Blood Count 4.74 M/uL (4.70-6.10); White Blood Count 4.81 K/ul (4.8-10.8)
[2024-06-11 07:19] LABS: BUN Creatinine Ratio 19.6 (10-20); Calcium 9.2 mg/dl (8.6-10.3); Creatinine Clr Calc Pharmacy 63.3 ml/min; Potassium 3.8 mmol/L (3.5-5.1)
[2024-06-11] MEDS: POLYETHYLENE (MIRALAX) 17 GM PACK PO PRN (21:02)
--- NOTE | 2024-06-12 06:54 | Hospitalist Progress Note ---
Date of Service June 11, 2024 Assessment & Plan (1) Stroke-like symptom: Plan: Acute ischemic stroke. 88yo male with history of HTN, HLP, DM and CAD presenting with weakness of left hand. Remainder of neurological exam is unremarkable Concern for possible CVA vs peripheral radiculopathy -Observation to medical with telemetry -Neuro checks and NIHSS per protocol -Check MRI brain -Check 2D echo -Lipid panel and HgbA1C -PT/OT evaluation -discussed with neurologist: will stop ASA and only use plavix. -Plavix 75mg daily - LDL is at goal, to limit risk of cerebral hemorrhage, will resume previous dose of atorvastatin Appeal for rehab completed yesterday. Awaiting determination Plan Chronic Medical Conditions: HTN -Hold antihypertensive agents, Lisinopril, Metoprolol willl resume metoprolol. Diabetes -Hold Metformin and Nateglinide -Lantus 5u BID -ISS Downgrade to med Admission and Anticipated Discharge Date Admission Date: June 10, 2024 Subjective Patient reports his left hand is slightly less weak today. Review of Systems Review of Systems: All systems reviewed & are unremarkable except as noted in HPI & below Physical Exam Physical Exam: General: patient resting comfortably, NAD, non-toxic in appearance, AA&O x 4 Skin: warm, dry, intact, no rashes or lesions HEENT: NC/AT, PERRL, EOMI, anicteric sclera, conjunctiva without injection, external ear normal to inspection and nontender, nares patent, moist mucus membranes, dentition intact, no oropharyngeal lesions, neck supple, trachea midline, no LAD, no thyromegaly, no JVD Heart: +S1/S2, regular, no m/r/g Lungs: equal air entry bilaterally, no rales/rhonchi/wheezes Abd: +BS, soft, NT/ND, no masses/organomegaly/ascites Ext: warm, 2+ pulses in UE/LE bilaterally, no clubbing/cyanosis or edema Neuro: nonfocal, patient AA&O x 4, speech intact, no facial droop, moving all extremities on command, 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
--- NOTE | 2024-06-12 07:51 | Hospitalist Progress Note ---
Date of Service June 12, 2024 Assessment & Plan (1) Stroke-like symptom: Plan: Acute ischemic stroke. 88yo male with history of HTN, HLP, DM and CAD presenting with weakness of left hand. Remainder of neurological exam is unremarkable confirmed cva, ? embolic ECHO shows preserved EF, no embolic source -Lipid panel TC 85 LDL is at goal, to limit risk of cerebral hemorrhage, will resume previous dose of atorvastatin HgbA1C 8.9% -PT/OT evaluation, improving, typically lives at [facility]), will discuss home with home health -discussed with neurologist: will stop ASA and only use plavix 75mg daily Appeal for rehab completed reportedly denied in CM notes Plan HTN resume metoprolol, Lisinopril at lower dose Diabetes -Hold Metformin and Nateglinide -Lantus 5u BID -ISS Admission and Anticipated Discharge Date Admission Date: June 10, 2024 Subjective pt was seen in his room, still with some weakness overall but not with focal deficits reportedly family is deciding on rehab Physical Exam Physical Exam: pt is awake and alert endorses rehab someoverall weakness but no noted left sided weakness Results & Data Results & Data Vital Signs (Past 12 Hours) Vital Signs Temp Pulse Pulse Resp BP Pulse Ox O2 Del Method 06/11/24 21:37 97.3 F L 87 16 159/95 H 95 Room Air 06/11/24 20:00 97.9 F 79 15 131/81 95 Room Air PG Care Time/CCT Total # of Minutes Spent Total Time Spent with Patient: Total time spent is greater than 50% in coordination of care (as documented) at patient's floor/unit and/or counseling patient: Coding Level of Care Code 46948 SUB INP/OBS CARE 2/35MIN Diagnoses Stroke-like symptom R29.90
[2024-06-12] MEDS: METOPROLOL SUCC 25MG EXT REL TAB PO SCH (09:49)
[2024-06-12] MEDS: lisinopril 2.5 MG TAB PO SCH (09:49)
[2024-06-12] MEDS: ATORVASTATIN 10 MG TAB PO SCH (10:22)
[2024-06-13] MEDS: POLYETHYLENE (MIRALAX) 17 GM PACK PO ONE (11:10)
--- NOTE | 2024-06-13 16:56 | Hospitalist Progress Note ---
Date of Service June 13, 2024 Assessment & Plan (1) Stroke-like symptom: Plan: Acute ischemic stroke. 88yo male with history of HTN, HLP, DM and CAD presenting with weakness of left hand. Remainder of neurological exam is unremarkable confirmed cva, ? embolic ECHO shows preserved EF, no embolic source -Lipid panel TC 85 LDL is at goal, to limit risk of cerebral hemorrhage, will resume previous dose of atorvastatin HgbA1C 8.9% -PT/OT evaluation, improving, [facility] ([facility]), will discuss home with home health -discussed with neurologist: will stop ASA and only use plavix 75mg daily await for rehab placement Plan HTN resume metoprolol, Lisinopril at lower dose pt with constipation, try miralax Diabetes -Hold Metformin and Nateglinide -Lantus 5u BID -ISS Admission and Anticipated Discharge Date Admission Date: June 10, 2024 Subjective pt was seen in his room, still with some weakness overall but not with focal deficits reportedly family is deciding on rehab, sons will be arranging [employer] private pay Physical Exam Physical Exam: pt is awake and alert some overall weakness but no noted left sided weakness c/o constipation, no abdominal pain Results & Data Results & Data Vital Signs (Past 12 Hours) Vital Signs Temp Pulse Resp BP BP Pulse Ox O2 Del Method 06/13/24 14:49 97.7 F 65 16 108/64 95 Room Air 06/13/24 07:29 97.7 F 75 16 107/71 96 Room Air Laboratory Results reviewed poc glucose PG Care Time/CCT Total # of Minutes Spent Total Time Spent with Patient: Total time spent is greater than 50% in coordination of care (as documented) at patient's floor/unit and/or counseling patient: Coding Level of Care Code 21858 SUB INP/OBS CARE 1/25MIN Diagnoses Stroke-like symptom R29.90
--- NOTE | 2024-06-13 17:19 | Hospitalist Progress Note ---
Date of Service June 13, 2024 Assessment & Plan (1) Stroke-like symptom: Plan: Acute ischemic stroke. 88yo male with history of HTN, HLP, DM and CAD presenting with weakness of left hand. Remainder of neurological exam is unremarkable confirmed cva, ? embolic ECHO shows preserved EF, no embolic source -Lipid panel TC 85 LDL is at goal, to limit risk of cerebral hemorrhage, will resume previous dose of atorvastatin HgbA1C 8.9% -PT/OT evaluation, improving, typically lives at [facility]), will discuss home with home health -discussed with neurologist: will stop ASA and only use plavix 75mg daily await for rehab placement Plan HTN resume metoprolol, Lisinopril at lower dose pt with constipation, try miralax Diabetes -Hold Metformin and Nateglinide -Lantus 5u BID -ISS Hyponatremia treated resolved with IV NSS Admission and Anticipated Discharge Date Admission Date: June 10, 2024 Results & Data Results & Data Vital Signs (Past 12 Hours) Vital Signs Temp Pulse Resp BP BP Pulse Ox O2 Del Method 06/13/24 14:49 97.7 F 65 16 108/64 95 Room Air 06/13/24 07:29 97.7 F 75 16 107/71 96 Room Air PG Care Time/CCT Total # of Minutes Spent Total Time Spent with Patient: Total time spent is greater than 50% in coordination of care (as documented) at patient's floor/unit and/or counseling patient: Coding Level of Care Code None Diagnoses Stroke-like symptom R29.90
[2024-06-14 07:27] LABS: Hematocrit (blood only) 41.9 % (42.0-52.0); Hemoglobin 14.8 g/dl (14.0-18.0); Mean Corpuscular Hemoglobin 32.2 pg (25.0-34.0); Mean Corpuscular Hgb Conc 35.3 g/dL (32.0-36.0); Mean Corpuscular Volume 91.1 fL (80.0-100.0); Platelet Count 191 K/uL (130-400); RDW Coefficient of Variation 12.8 % (11.5-14.5)
[2024-06-14 07:41] VITALS: PULSE 71
[2024-06-14 07:49] LABS: BUN Creatinine Ratio 27.1 (10-20); Calcium 8.8 mg/dl (8.6-10.3); Creatinine Clr Calc Pharmacy 60.7 ml/min; Potassium 3.9 mmol/L (3.5-5.1)
[2024-06-14 14:21] VITALS: BP 113/77; RESP 16; TEMP 97.5; O2SAT 94
--- NOTE | 2024-06-14 15:52 | Discharge Summary ---
Discharge Summary Date of Service June 14, 2024 Principal Dx & Hospital Course #1 = Principal Diagnosis (1) Stroke-like symptom: Acute ischemic stroke. 88yo male with history of HTN, HLP, DM and CAD presenting with weakness of left hand. Remainder of neurological exam is unremarkable confirmed cva, ? embolic ECHO shows preserved EF, no embolic source -Lipid panel TC 85 LDL is at goal, to limit risk of cerebral hemorrhage, will resume previous dose of atorvastatin HgbA1C 8.9% -PT/OT evaluation, improving, typically lives at [facility] will go to rehab private pay and hopeful to return to [facility] -discussed with neurologist: will stop ASA and only use plavix 75mg daily rehab placement Plan HTN resume metoprolol, Lisinopril at lower dose pt with constipation, try miralax prn Diabetes -resume Metformin and Nateglinide Hyponatremia treated resolved Admission HPI Per Admitting Provider Marcio Carcamo is a pleasant 88yo right-hand dominant male with history of HTN, HLP, DM and CAD presenting from home with left hand weakness. Patient woke this AM and reports his left hand felt numb and weak. He was unable to hold onto anything. He was in his usual state of health with no deficits last night upon going to bed. No pain in the hand, no trauma. In the ER patient is afebrile, HD stable, NAD Discharge Exam pt is awake and alert some overall weakness but no noted left sided weakness c/o constipation, no abdominal pain Discharge Plan Discharge Items Patient Disposition: Transfer Inpatient Rehab Fac Reason For Visit: LEFT HAND WEAKNESS Discharge Diagnosis: embolic stroke Activity: Per Instructions section Non-emergency contact: Primary Care Provider Call non-emergency contact if: your symptoms worsen Follow-up/Referrals: Juan Alberto Valdez MD [Primary Care Provider] - Diet: Heart Healthy Addtl Attending Provider Instructions: Risk Factors for Stroke: You can reduce your chances of stroke by working with your medical provider to adopt a healthy lifestyle. Some specific ways to lower your chance of stroke are: * If you are a smoker, now is the time to stop smoking cigarettes * If you are diabetic, improve the control of your blood sugars * Avoid excessive amounts of alcohol * Control high blood pressure * Lose weight if you are overweight * Be sure to lead an active lifestyle * Eat a healthy diet low in salt, cholesterol and fat You should know about other risk factors for stroke that you are unable to control. These include: * Age 55 years or older * Male gender * Certain racial groups: , or / * Family History of Stroke, Mini stroke or Heart Attack * Sickle Cell Disease Follow Up: It is important for you to keep your follow up appointments with your medical provider. Who to Call and When: Medical Emergencies: Call 911 immediately if you experience any of the following warning signs and symptoms of Stroke: * Sudden numbness or weakness of the face, arm or leg, especially on one side of the body * Sudden confusion, trouble speaking or understanding * Sudden trouble seeing in one or both eyes * Sudden trouble walking, dizziness, loss of balance or coordination * Sudden severe headache with no cause Do not delay calling 911 if you experience any warning signs or symptoms of a stroke. Delay in seeking medical attention may affect what treatments can be given to you. . Addtl Experimental Assembler Provider Instructions: pt was on insulin in hospital transition to po meds at transfer solo plavix per tele neruo consult Pending Studies at Discharge: No Stand-Alone Forms: My [facility] The Cloakroom, Medications to Prevent Stroke Skilled Items Patient informed of condition?: Yes DNR: No Discharge Level of Care: Acute rehab Communicable Disease: No Discharge Prognosis: Stable Lines: None Urinary Catheter: No Medications and DC Order Prescriptions: New clopidogrel 75 mg Tablet 75 mg PO QAM Qty: 3 0RF lisinopril 2.5 mg Tablet 2.5 mg PO QAM Qty: 30 0RF Continued nateglinide 60 mg tablet 60 mg PO TID Rx Instructions: give before meal(s) Zirgan 0.15 % gel 1 drp ophthalmic (eye) HS nitroglycerin 0.4 mg tablet, sublingual 0.4 mg sublingual Q5M PRN (Reason: Chest Pain) Rx Instructions: do not exceed 3 doses per episode timolol 0.5 % drops 1 drp OPL BID Zyrtec 10 mg capsule 10 mg PO DAILY atorvastatin 10 mg tablet 10 mg PO DAILY metoprolol succinate 25 mg tablet extended release 24 hr 25 mg PO DAILY metformin 500 mg tablet 500 mg PO TID famciclovir 500 mg Tablet 500 mg PO DAILY Held lisinopril 10 mg tablet 10 mg PO DAILY Hold Instructions: Provider's Order Discontinued aspirin 325 mg Tablet 325 mg PO DAILY Discharge Orders: Discharge Order (Routine); Ordered 06/14/24 Ordered By: Navid Rowe/Other Patient Handouts: High Blood Sugar (Hyperglycemia), Managing Type 2 Diabetes Admission Data Admit Date/Time: 06/10/24 16:41 Attending Provider: Navid Rico Admit Provider: Stella Boyce Primary Care Provider: Juan Alberto Valdez Other Providers: Desirae Vaughn [facility]; [facility]; Stella Boyce Hospital Stay Data Consultations 06/08/24 23:20 ED Decision to Admit Stat Diagnostic Imagining Performed 06/08/24 18:57 CT head/brain wo con Stat 06/09/24 02:56 MR brain wo/w con Routine Pending Results Patient Have Any Pending Studies at Discharge: No Discharge Instructions Given to Patient (Per Discharging Provider) Risk Factors for Stroke: You can reduce your chances of stroke by working with your medical provider to adopt a healthy lifestyle. Some specific ways to lower your chance of stroke are: * If you are a smoker, now is the time to stop smoking cigarettes * If you are diabetic, improve the control of your blood sugars * Avoid excessive amounts of alcohol * Control high blood pressure * Lose weight if you are overweight * Be sure to lead an active lifestyle * Eat a healthy diet low in salt, cholesterol and fat You should know about other risk factors for stroke that you are unable to control. These include: * Age 55 years or older * Male gender * Certain racial groups: , or / * Family History of Stroke, Mini stroke or Heart Attack * Sickle Cell Disease Follow Up: It is important for you to keep your follow up appointments with your medical provider. Who to Call and When: Medical Emergencies: Call 911 immediately if you experience any of the following warning signs and symptoms of Stroke: * Sudden numbness or weakness of the face, arm or leg, especially on one side of the body * Sudden confusion, trouble speaking or understanding * Sudden trouble seeing in one or both eyes * Sudden trouble walking, dizziness, loss of balance or coordination * Sudden severe headache with no cause Do not delay calling 911 if you experience any warning signs or symptoms of a stroke. Delay in seeking medical attention may affect what treatments can be given to you. . Total Time Total Time Spent Total Time Spent (In Minutes): It required greater than 30 minutes to prepare this patient for discharge. Coding Level of Care Code 29703 INP/OBS DISCH >30 MIN Diagnoses Stroke-like symptom R29.90
== END 2024-06-14 15:47 | DRG 65 ==
LOC: ED 18:36 → EDINP 18:36 → SUATTDRO 06-09 00:25 → 2S 06-09 04:53 → SUATTDRO 06-10 16:41 → 3W 06-11 21:20

== ENCOUNTER 2024-10-28 16:07 | Inpatient (IN) ==
--- OUTSIDE RECORDS SUMMARY | 2024-10-28 16:13 | External Medical Summary | Continuity of Care Document ---
Author Name Unknown Organization [facility] [address] Address [address] [place], [place] [id number] Care Team Providers Care Radio Adjuster Name Role Phone Solo Valdez Primary Care Physician [phone] Encounter [facility] [id number] Date(s): 10/25/24 - 10/25/24 [facility] [address] [place] [address] [facility] [address], [address] [place] [address] [phone] Encounter Diagnosis Lung cancer(Discharge Diagnosis) - 10/25/24 Anxiety(Discharge Diagnosis) - 10/25/24 Shortness of breath(Discharge Diagnosis) - 10/25/24 Sleep apnea(Discharge Diagnosis) - 10/25/24 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 Liver cancer(Discharge Diagnosis) - 10/25/24 Discharge Disposition: Home or Self Care Attending Physician: Juan Jackson DO, Mariana Annette Referring Physician: Juan Jackson DO, Mariana Annette Encounter Type: Clinic Allergies, Adverse Reactions, Alerts Substance Criticality Severity Reaction Reaction Severity Status morphine made patient nicolasa esparza as per patient Active Assessment and Plan Extracted from: Title:Office Visit Note Author:Juan Jackson DO, Mariana Annette Date:10/25/24 1.Anxiety Trial of citalopram 10mg daily and [id number] TID PRN we discussed referral to palliative care for sx management and patient agreeable, might benefit from palliative oxygen therapy to help with SOB. No recent oncology records available for review. 2.Shortness of breath 3.Carcinoid tumor of lung 4.Liver cancer 5.Sleep apnea CPAP ordered f/u 4 weeks or PRN Immunizations Given and Recorded Vaccine Date Status Refusal Reason SARS COVID Vaccine Unspecified 05/06/24 Recorded SARS-CoV-2 (COVID-19) mRNA-vacc - [id number] 08/12/23 Recorded zoster vaccine, inactivated 09/28/22 Recorded SARS-CoV-2 mRNA-1273 (6y+ bivalent) 09/28/22 Recor ded SARS-CoV-2 mRNA ([id number]) 01/26/22 Re corded SARS-CoV-2 (COVID-19) mRNA BNT-162b2 vax 1 10/24/20 Recorded SARS-CoV-2 (COVID-19) mRNA BNT-162b2 vax 2 10/03/20 Recorded pneumococcal 23-valent vaccine 3 07/02/19 Recorded pneumococcal 13-valent vaccine 4 08/20/16 Recorded pneumococcal 13-valent vaccine 5 08/08/15 Recorded influenza virus vaccine, H1N1 6 08/26/09 Recorded zoster vaccine live 03/31/09 Recorded 1Result Comment: 2021-05-04: Historical information-source unspecified 2Result Comment: 2021-05-04: Historical information-source unspecified 3Result Comment: 2021-05-04: Historical information-source unspecified 4Result Comment: 2021-05-04: Historical information-source unspecified 5Result Comment: 2021-05-04: Historical information-source unspecified 6Result Comment: 2021-05-04: Historical information-source unspecified Medications atorvastatin 10 mg oral tablet Start: 10/02/24 11:08:00 AM EST, 1 tab, PO, Daily, Disp# 90 tab, Refills: 3, Pharmacy: [facility] [place] [place] Start Date: 10/02/24 Status: Ordered Quantity: 90.0 Unit: tab Repeat number: 4 BuSpar 5 mg oral tablet Start: 10/25/24 8:21:00 AM EST, 1 tab, PO, tid, Disp# 90 tab, Refills: 3, PRN anxiety, Pharmacy: [facility] [place] [place] Start Date: 10/25/24 Status: Ordered Quantity: 90.0 Unit: tab Repeat number: 4 citalopram 10 mg oral tablet Start: 10/25/24 8:21:00 AM EST, 1 tab, PO, Daily, Disp# 90 tab, for anxiety and depression, Pharmacy: [facility] [place] [place] Start Date: 10/25/24 Status: Ordered Quantity: 90.0 Unit: tab Repeat number: 1 clopidogrel 75 mg oral tablet Start: 10/03/24 8:01:00 AM EST, 1 tab, PO, Daily, Disp# 90 tab, Refills: 3, TAKE 1 TABLET BY MOUTH EVERY DAY, Pharmacy: [facility] [place] [place] Start Date: 10/03/24 Status: Ordered Quantity: 90.0 Unit: tab Repeat number: 4 famciclovir 500 mg oral tablet Start: 10/07/22 3:12:00 PM EST, 1 tab, PO, q8h Start Date: 10/07/22 Status: Ordered Repeat number: 1 lisinopril 2.5 mg oral tablet Start: 10/03/24 8:01:00 AM EST, 1 tab, PO, Daily, Disp# 90 tab, Refills: 3, Pharmacy: [facility] [place] [place] Start Date: 10/03/24 Status: Ordered Quantity: 90.0 Unit: tab Repeat number: 4 Megace Start: 10/25/24 7:54:00 AM EST, Megace Start Date: 10/25/24 Status: Ordered Repeat number: 1 metFORMIN 500 mg oral tablet Start: 10/03/24 8:01:00 AM EST, 1 tab, PO, tid, Disp# 270 tab, Refills: 3, Pharmacy: [facility] [place] [place] Start Date: 10/03/24 Status: Ordered Quantity: 270.0 Unit: tab Repeat number: 4 Metoprolol Succinate ER 25 mg oral tablet, extended release Start: 10/03/24 8:01:00 AM EST, 1 tab, PO, Daily, Disp# 90 tab, Refills: 3, Pharmacy: [facility] [place] [place] Start Date: 10/03/24 Status: Ordered Quantity: 90.0 Unit: tab Repeat number: 4 nateglinide 120 mg oral tablet Start: 10/03/24 8:01:00 AM EST, See Instructions, Disp# 270 tab, Refills: 3, TAKE 1 TABLET BY MOUTH BEFORE MEALS, HOLD DOSE IF MEAL IS MISSED, Pharmacy: [facility] [place] [place] Start Date: 10/03/24 Status: Ordered Quantity: 270.0 Unit: tab Repeat number: 4 Timolol Maleate (Eqv-Timoptic) 0.5% ophthalmic solution Start: 10/07/22 3:13:00 PM EST Start Date: 10/07/22 Status: Ordered Repeat number: 1 traZODone 50 mg oral tablet Start: 10/17/24 8:38:00 AM EST, 1 tab, PO, qhs, Disp# 30 tab, Refills: 3, for sleep, Pharmacy: [facility] [place] Start Date: 10/17/24 Status: Ordered Quantity: 30.0 Unit: tab Repeat number: 4 Mental Status 10/25/24 Barriers to Learning one year None evide nt Mandatory Health Literacy Documentation Yes Health Literacy Communication Barriers N ever Primary Language Bengali Problem List Condition Confirmation Course Effective Dates Status Health St atus Informant Arthritis Confirmed Active Carcinoid tumor of lung Confirmed Active Stroke Confirmed Active Diabetes mellitus Confirmed Active Polycythemia Confirmed Active Fatigue Confirmed Active Hypertension Confirmed Active Facial mass Confirmed Active Melanoma Confirmed Active Liver cancer Confirmed Active CAD S/P percutaneous coronary angioplasty Confirmed Active Sleep apnea Confirmed Active Diagnosis Diagnosis Type Effective Dates Health Status Cl inical Service Informant Sleep apnea Discharge Diagnosis 10/25/24 Non-Specified Shortness of breath Discharge Diagnosis 10/25/24 Non-Specified Liver cancer Discharge Diagnosis 10/25/24 Non-Specified Lung cancer Discharge Diagnosis 10/25/24 Non-Specified Anxiety Discharge Diagnosis 10/25/24 Non-Specified Carcinoid tumor of lung Discharge Diagnosis 10/25/24 Non-Specified Procedures Procedure Date Related Diagnosis Body Site Status CT of neck 1 11/10/22 Completed X-ray of facial bones 2 10/07/22 C ompleted Mohs' surgery 3 05/11/22 Completed Shave biopsy of skin 03/30/22 Comp leted Mohs micrographic surgery 09/30/21 Completed Shave biopsy and cauterization of skin 09/03/21 Completed Open heart surgery 09/05/68 Comple hernán Cholecystectomy Completed Eye Completed Prostatectomy Completed 1Impression: 1. Unchanged size of the 1.6 cm right facial lesion which abuts amd may involve the inferior aspectof the superifical lobe of the right parotid gland. Ultrasound-guided FNA recommended for further characterization. 2. No pathologically enlarged lymph nodues 3. Incidental findings as above 2Impression: 1. No significant osseous abnormality of the facial bones by radiography. 2. Equivocal soft tissue nodule projectin inferior to the right ear, measuring approximately 1.2cm.If indicated, a CT could be obtained. 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 Vital Signs Most recent to oldest [Reference Range]: 1 Temperature [36.5-37.9 DegC] 36.0 DegC *LOW* (10/25/24 7:57 AM) Respiratory Rate 20 br/min (10/25/24 7:57 AM) Blood Pressure 110/52mmHg (10/25/24 7:57 AM) Cuff Pulse Pressure 58 mmHg (10/25/24 7:57 AM) Social History Social History Type Response Tobacco Former smoker Smoking Status Never smoked cigaret ranjit Sex Male Sex Representation Male (finding) FCM Outpt Note * Juan Jackson DO, Mariana Annette: PERFORM Event Display: FCM Outpt Note Authored Date: [id number] Chief Complaint Anxiety/depression, trouble sleeping, SOB at times. New CPAP request referral. Declines ELISHA/PHQ. Had flu inj. History of Present Illness Presents to discuss several problems Son is presents and provides most of the history Patient with lung and liver cancer, underwent palliative treatment with radiation and lanreotideinjections. He has been declining over the past month, recently had a fall. Lately he feels like he can't breathe, he feels like this all the time, son states his lung imagingPET scan about 2 weeks ago, and states imaging has been stable. Patient endorses a lot of anxiety about his health and his overall decline. He feels this is related to the SOB. He also endorses some depression due to this. He has been following with oncology, but has never seen palliative care. Was recently started on trazodone and unsure if it is helping. Physical Exam Vitals & Measurements T:36.0C RR:20 BP:110/52 SpO2:98% General: _Alert and oriented, No acute distress Cardiovascular: _tachycardic, Regular rhythm, No murmur, No gallop. Respiratory: _Lungs are clear to auscultation, diminishedBS throughout,Respirations are non-labored Psych:Anxious. Reports no SI/HI. Speech is of normal pace and content Assessment/Plan 1.Anxiety Trial of citalopram 10mg daily and [id number] TID PRN we discussed referral to palliative care for sx management and patient agreeable, might benefit from palliative oxygen therapy to help with SOB. No recent oncology records available for review. 2.Shortness of breath 3.Carcinoid tumor of lung 4.Liver cancer 5.Sleep apnea CPAP ordered f/u 4 weeks or PRN Attestation Time spent: Pre-visit planning: _10 Uxyv-gv-[id number] visit: _21 Post-visit (orders/documentation/coordination of care):5 Total visit time: _36 Problem List/Past Medical History Ongoing Arthritis CAD S/P percutaneous coronary angioplasty Carcinoid tumor of lung Diabetes mellitus Facial mass Fatigue Hypertension Liver cancer Melanoma Polycythemia Sleep apnea Stroke Resolved Prostate cancer Procedure/Surgical History CT of neck| Service Date: 11/10/2022X-ray of facial bones| Service Date: 10/07/2022Mohs' surgery| Service Date: 05/11/2022have biopsy of skin| Service Date: 03/30/2022Mo micrographic surgery| Service Date: 09/30/2021have biopsy and cauterization of skin| Service Date: 1Open heart surgery| Service Date: 09/05/1968EyeCholecystectomyProstatectomy Medications atorvastatin(atorvastatin 10 mg oral tablet), 1 tab, PO, Daily, 3 refills busPIRone(BuSpar 5 mg oral tablet), 5 mg= 1 tab, PO, tid, 3 refills citalopram(citalopram 10 mg oral tablet), 10 mg= 1 tab, PO, Daily clopidogrel(clopidogrel 75 mg oral tablet), 75 mg= 1 tab, PO, Daily, 3 refills famciclovir(famciclovir 500 mg oral tablet), 500 mg= 1 tab, PO, q8h lisinopril(lisinopril 2.5 mg oral tablet), 2.5 mg= 1 tab, PO, Daily, 3 refills metFORMIN(metFORMIN 500 mg oral tablet), 1 tab, PO, tid, 3 refills metoprolol(Metoprolol Succinate ER 25 mg oral tablet, extended release), 1 tab, PO, Daily, 3 refills nateglinide(nateglinide 120 mg oral tablet), See Instructions, 3 refills timolol ophthalmic(Timolol Maleate (Eqv-Timoptic) 0.5% ophthalmic solution) traZODone(traZODone 50 mg oral tablet), 50 mg= 1 tab, PO, qhs, 3 refills unknown medication(Megace) Allergies morphinemade patient feel funny and goofy as per patient Social History Smoking Status Never smoked cigarettes Alcohol - Low Risk Use:Current Frequency:1-2 times per year Substance Abuse - Denies Substance Abuse Tobacco - Denies Tobacco Use Use:Former smoker Intake (IView) Smoking History Cigarette smoker: Never smoked cigarettes Tobacco Product Use: Former other tobacco use, quit > than 1 year Family History Cancer: Father. [place] (myocardial infarction)...: Brother. Stroke: Mother. Health Status Family Member(s) Immunizations Vaccine Date Status SARS COVID Vaccine Unspecified 05/2024 Recorded SARS-CoV-2 (COVID-19) mRNA-vacc - [id number] 08/12/2023 Recorded zoster vaccine, inactivated 09/28/2022 Recorded SARS-CoV-2 mRNA-1273 (6y+ bivalent) 09/28/2022 Recorded SARS-CoV-2 mRNA (iswrypzfhgd-crun-bdk) 01/26/2022 Recorded SARS-CoV-2 (COVID-19) mRNA BNT-162b2 vax 10/24/2020 Recorded Comments : 2021-05-04: Historical information-source unspecified SARS-CoV-2 (COVID-19) mRNA BNT-162b2 vax 10/03/2020 Recorded Comments : 2021-05-04: Historical information-source unspecified pneumococcal 23-valent vaccine 07/02/2019 Recorded Comments : 2021-05-04: Historical information-source unspecified pneumococcal 13-valent vaccine 08/20/2016 Recorded Comments : 2021-05-04: Historical information-source unspecified pneumococcal 13-valent vaccine 08/08/2015 Recorded Comments : 2021-05-04: Historical information-source unspecified influenza virus vaccine, H1N1 08/26/2009 Recorded Comments : 2021-05-04: Historical information-source unspecified zoster vaccine live 03/31/2009 Recorded Recommendations Health Maintenance Pending(in the next year) OverDue Medicare Annual Wellness Visit due09/17/23and every 1year Adult Influenza Vaccine due03/05/24and every 1year Due Adult Social Determinants of Health Screening due10/25/24Unknown Frequency Adult Tdap/Td Vaccine due10/25/24Unknown Frequency Shingles Vaccine due10/25/24One-time only Due In Future Body Mass Index not due until06/30/25and every 366day Diabetes Management A1c not due until06/30/25and every 366day Falls Plan of Care not due until08/15/25and every 1year Satisfied(in the past 1 year) Satisfied Body Mass Index on06/29/24.Satisfied by SENIA Blackburn Angela Diabetes Management A1c on06/29/24.Satisfied by Contributor_system, [id number] Diabetes Nephropathy Management on07/03/24.Satisfied by Contributor_system, [id number] Diabetic Eye Exam on01/25/24.Satisfied by MD Valdez Ravishankar E Lipid Screening on06/29/24.Satisfied by Contributor_system, [email or web address] Electronic Signature on File Electronically Reviewed/Signed by: Tatyana Jackson DO Author Signature Dt/Tm:10/25/2024 09:35 AM Department of Family Medicine [facility] Patient Care team information Care Team Personnel Name: MD Valdez Ravishankar E Position: Physician Member Role: Primary Care Provider Address: [address] [place] [address] Telecom: [phone] Care Team Related Persons Name: SALVADOR WILBURN Insurance Providers Guarantor name: LISA WILBURN Health Plan Information #: 1 Payer: MEDICARE Member Number: [id number] Policy Number: NA Group Number: NA Health Plan Information #: 2 Payer: MEDICARE Member Number: [id number] Policy Number: NA Group Number: NA Health Plan Information #: 3 Payer: [employer] PPO Member Number: NA Policy Number: NA Group Number: NA"
--- OUTSIDE RECORDS SUMMARY | 2024-10-28 16:13 | External Medical Summary | Summary of Care ---
Author Name Unknown Organization [facility] Address [address] [place] [address] Phone [phone] Care Team Providers Care Instrument Person Name Role Phone Unavailable Primary Care Provider Unavailabl e Reason for Referral * Evaluate & Treat - Unlimited Visits (Within 10 days (routine)) - Authorized Specialty Diagnoses / Procedures Referred By Swetha t Referred To Contact Hospice and Palliative Medicine / Palliative Medicine Diagnoses Malignant neoplasm of liver, not specified as primary or secondary (HCC) Malignant neoplasm of unspecified part of unspecified bronchus or lung (HCC) SOB (shortness of breath) Tatyana De La Cruz DO [address] [place] [id number] Phone: tel: fax: Referral ID Status Reason Start Date Expiration Date Visits Requested Visits Authorized [id number] Authorized Specialty Services Required 10/26/2024 [id number] Question Answer Referral Priority Within 10 days (routine) Where should this appointment be scheduled? [facility] Reason for Referral: Cancer Palliative Medicine To Address: Pain & Symptom Management Referral Location Office Comments Notes/ref scanned in Business [employer] Encounter Details Date Type Department Care Team (Late st Contact Info) Description 10/26/2024 Orders Only Access [place], [place] [address] *DO NOT REMOVE THIS DEPARTMENT* ISELA HAUSER [id number] Request, External Referral Malignant neoplasm of liver, not specified as primary or secondary (HCC)*; Malignant neoplasm of unspecified part of unspecified bronchus or lung (HCC); SOB (shortness of breath) Allergies Active Allergy Reactions Criticality Noted Date Comments Morphine And Codeine Itching 03/31/2009 documented as of this encounter (statuses as of 10/26/2024) Medications atorvaSTATin (LIPITOR) 10 MG Tablet Take 10 mg by mouth daily. 2 9 Active metoprolol succinate XL (TOPROL XL) 25 MG TB24 Take 25 mg by mouth daily. 0 9 Active nateglinide (STARLIX) 60 MG Tablet TAKE 1 TABLET BY MOUTH 3 TIMES A DAY BEFORE MEALS 0 9 Active latanoprost (XALATAN) 0.005 % ophthalmic solution Instill into both eyes at bedtime . 9 Active dorzolamide-vicki olol (COSOPT OCUMETER PLUS) 2.23-0.68% ophthalmic solution PLACE 1 DROP IN LEFT EYE TWICE A DAY DIRECTED 5 9 Active quinapril (ACCUPRIL) 40 MG Tablet Take 40 mg by mouth daily. 0 9 Active aspirin 325 MG Tablet Take 325 mg by mouth daily. 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 20 Cap 9 Active mupirocin calcium (BACTROBAN) 2 % ointmentIndicat ions:Visit for wound check Apply topically to affected area daily. To your surgery site 30 g 1 9 Active documented as of this encounter (statuses as of 10/26/2024) Active Problems No known active problems documented as of this encounter (statuses as of 10/26/2024) Immunizations Name Administration Dates Next Due H1N1 2009 Influenza, IM 08/26/2009 Varicella Zoster Vaccine (Adult) 03/31/2009 documented as of this encounter Social History Tobacco Use Types Packs/Day Years Used Date Smoking Tobacco: Never Smokeless Tobacco: Never Alcohol Use Standard Drinks/Week Comments Not Currently 0 (1 standard drink = 0.6 oz pur e alcohol) Sex and Gender Information Value Date Recorded Sex Assigned at Not on file Legal Sex Male 5:59 AM EST Gender Identity Not on file Sexual Orientation Not on file documented as of this encounter Plan of Treatment Scheduled Referrals Name Type Priority Associated Diagnoses Orde r Schedule PALLIATIVE CARE REFERRAL OP Referral Within 10 days (routine) Malignant neoplasm of liver, not specified as primary or secondary (HCC) Malignant neoplasm of unspecified part of unspecified bronchus or lung (HCC) SOB (shortness of breath) Ordered: 10/26/2024 Health Maintenance Due Date Last Done Comments Depression Screening 1947 DTap/Tdap Vaccines (1 - Tdap) 1954 Zoster Vaccines (3 of 3) 11/23/2022 09/28/2022, 03/06 COVID-19 Vaccine (4 - season) 2024 01/26/2022, 10/24/2020, 10/03/2020 Influenza Vaccine (FLU shot) (#1) 2024 06/25/2019, 06/24/2017, 06/24/2017, Additional history exists Pneumococcal Vaccine: 50+ Years Completed 07/02/2019, 08/20/2016, 08/08/2015, Additional history exists HPV (Gardasil) Vaccine Aged Out No lo nger eligible based on patient's age to complete this topic Hepatitis B Vaccine Aged Out No longe r eligible based on patient's age to complete this topic MENINGOCOCCAL (MENACTRA/MENVEO) Aged Out No longer eligible based on patient's age to complete this topic Meningitis B Vaccine (Bexsero/Trumemba) Aged Out No longer eligible based on patient's age to complete this topic documented as of this encounter Medical Devices Not on filedocumented as of this encounter Visit Diagnoses Diagnosis Malignant neoplasm of liver, not specified as primary or secondary (HCC)- Primary Malignant neoplasm of liver, not specified as primary or secondary Malignant neoplasm of unspecified part of unspecified bronchus or lung (HCC) SOB (shortness of breath) Shortness of breath documented in this encounter
[2024-10-28 16:34] LABS: Basophils # (auto) 0.01 K/uL (0.00-0.20); Basophils % (auto) 0.2 %; Eosinophils # (auto) 0.01 K/uL (0.00-0.50); Eosinophils % (auto) 0.2 %; Hematocrit (blood only) 44.9 % (42.0-52.0); Hemoglobin 15.5 g/dl (14.0-18.0); Immature Granulocytes # (auto) 0.03 K/uL (0.01-0.20); Immature Granulocytes % (auto) 0.6 %; Lymphocytes % (auto) 15.1 %; Mean Corpuscular Hemoglobin 31.8 pg (25.0-34.0); Mean Corpuscular Hgb Conc 34.5 g/dL (32.0-36.0); Mean Platelet Volume 10.7 fL (9.4-12.4); Monocytes # (auto) 0.94 K/uL (0.11-0.59); Monocytes % (auto) 17.8 %; Neutrophils % (auto) 66.1 %; Platelet Count 203 K/uL (130-400); RDW Coefficient of Variation 13.2 % (11.5-14.5); Red Blood Count 4.88 M/uL (4.70-6.10); White Blood Count 5.29 K/ul (4.8-10.8)
[2024-10-28 16:50] LABS: Albumin Globulin Ratio 1.6 (0.9-2); Albumin Level 3.6 gm/dl (3.4-5.0); BUN Creatinine Ratio 21.4 (10-20); Bilirubin,Total 0.7 mg/dl (0.2-1.0); Calcium 8.8 mg/dl (8.6-10.3); Globulin 2.3 gm/dl (2.5-4.0); Magnesium 1.7 mg/dl (1.7-2.4); Potassium 5.1 mmol/L (3.5-5.1); Total Protein 5.9 gm/dl (6.0-8.3)
--- NOTE | 2024-10-28 16:52 | Emergency Department Note ---
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 Patient states he is worsening shortness of breath over the past month or 2. Today was particularly weak and gets very short of breath of trying to get out of bed. Thus came here. No syncope. No bloody cough although occasionally a bit of dry cough. No significant chest pain or abdominal pain or swelling. Feels generally weak and again dyspnea on exertion. Is on chemotherapy. PAST MEDICAL HISTORY: As noted above MEDICATIONS: Reviewed home medications SOCIAL HISTORY: Resides at [facility] facility PHYSICAL EXAM: GENERAL: alert and oriented in no acute distress on stretcher but weak and fatigued in appearance Head: normocephalic and atraumatic EYES: No injection, discharge or icterus. PERRL, EOMI. NECK: Trachea midline. Supple. ENT: Mucous membranes pink and moist. Pharynx without erythema or exudate. LUNGS: Airway patent. No retractions. Breath sounds clear with good air entry bilaterally. HEART: Regular rate and rhythm. No chest wall tenderness ABDOMEN: Soft and non-tender, without guarding or rebound. SKIN: Acyanotic, warm, dry, without rashes EXTREMITIES: Without swelling, tenderness or deformity NEUROLOGICAL: No focal deficits. No aphasia. No facial droop or slurred speech. Normal strength and tone in the extremities. Sensation to gross touch normal. Ambulatory. EK bpm normal sinus rhythm. No PVC or PAC. No acute ST segment elevation or depression with a QTc of 391. CONTINUOUS CARDIAC MONITORING: was ordered and showed a heart rate of 50s to 60s bpm in normal sinus rhythm/sinus bradycardia Patient's laboratory studies and imaging reviewed. Differential includes Reactive airway disease, pneumonia, pneumothorax, COPD, CHF, infections, cardiac ischemia, pulmonary embolism, musculoskeletal, gastrointestinal, as well as other pathologies. IMPRESSION/MEDICAL DECISION MAKING: No falls or syncope but particular dyspnea on exertion and weakness. Is on chemotherapy. Blood work here without significant anemia leukocytosis. No fevers. Respiratory viral panel sent but lower suspicion for respiratory infection or sepsis. Will complete a CT of the chest to further evaluate these prior lung findings exclude underlying PE or occult pneumonia. EKG and troponin sent but lower suspicion for cardiac etiology. Benign abdomen on exam. Not focal in nature and I doubt CVA or any intracranial hemorrhage. Electrolytes here with some slightly worsened sodium 130 from 135 recently. Normal renal function. No severe transaminitis noted. Troponin normal. Procalcitonin not significantly elevated. Chest x-ray difficult to interpret with his underlying lung issues with little to right side of haziness as such again CTA of the chest was completed. No PE per report and similar-appearing right hilar mass without pneumothorax or significant additional lung space disease besides the stable right middle lobe. Respiratory viral panel returns negative. Discussed with patient and his son who is now present. Resting comfortably in bed. Evidently they are in discussion to follow-up with palliative care in a approximately 10 days for possible hospice. Looking additional hospice resources to keep the patient at [place] and focus a lot on comfort. Given the patient's weakness and dyspnea on exertion at this point and lack of those established additional resources, and discussion with them we will observe overnight. Hopefully palliative medicine could possibly see her begin the process tomorrow while here in the hospital. Do not see well for anticoagulants or additional antibiotics at this time. Patient and son agreeable with this plan. Hospitalist team was contacted. DIAGNOSIS: Dyspnea on exertion, weakness DISPOSITION: Hospitalist will evaluate Patient was agreeable with this plan. 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" Dry eye syndrome Prostate cancer Sleep apnea Coronary artery disease Hyperlipidemia Melanoma Hypertension Diabetes Surgical History History of hemorrhoidectomy H/O right inguinal hernia repair S/P colonoscopy History of cataract surgery Bilateral S/P appendectomy History of tonsillectomy History of surgery Surgery both eyes for "droopy eyes" H/O prostatectomy History of cholecystectomy History of open heart surgery Triple bypass surgery Status post Mohs surgery 09/30/21 H/O angioplasty Family History Mother , in her 90s Fall Stroke associated with fall Father , in his 60s Lung cancer Smoker Brother Myocardial infarction Son No problems noted. 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 Feels Safe at Home: Yes Diet: regular caffeine: Yes (2 cups/day - decaf) during the past year weight has: remained stable Assistive Devices: Walker Allergies Allergies Allergy/AdvReac Type Severity Reaction Status Date / Time morphine Allergy Unknown Verified 10/28/24 18:30 Home Meds Home Medications Medication Instructions Recorded Confirmed atorvastatin 10 mg tablet 10 mg PO DAILY 09/08/23 10/28/24 metoprolol succinate 25 mg 25 mg PO DAILY 09/08/23 10/28/24 tablet,extended release 24 hr metformin 500 mg tablet 500 mg PO TID 10/04/23 10/28/24 nitroglycerin 0.4 mg sublingual 0.4 mg sublingual Q5M PRN Chest 10/04/23 10/28/24 tablet Pain timolol 0.5 % eye drops 1 drp OPL BID 10/04/23 10/28/24 cetirizine 10 mg capsule (Zyrtec) 10 mg PO DAILY 03/06/24 10/28/24 famciclovir 500 mg tablet 500 mg PO DAILY 06/08/24 10/28/24 aspirin,buffered (calcium 325 mg PO DAILY 10/28/24 10/28/24 carbonate-magnesium) 325 mg tablet (Tri-Buffered Aspirin) buspirone 5 mg tablet 5 mg PO TID PRN Anxiety 10/28/24 10/28/24 ganciclovir 0.15 % eye gel (Zirgan) 1 ea OPR HS 10/28/24 10/28/24 megestrol 40 mg tablet 40 mg PO BID 10/28/24 10/28/24 nateglinide 120 mg tablet 120 mg PO AC 10/28/24 10/28/24 trazodone 50 mg tablet 50 mg PO HS 10/28/24 10/28/24 Previous Rx's Medication Instructions Recorded clopidogrel 75 mg tablet 75 mg PO QAM #3 tabs 06/14/24 lisinopril 2.5 mg tablet 2.5 mg PO QAM #30 tabs 06/14/24 Results & Data (ED) Vital Signs Vital Signs - 24 hr 10/28/24 15:57 10/28/24 15:57 10/28/24 15:57 Temperature 36.8 C 36.8 C Temperature Source Oral Oral Pulse Rate 61 Pulse Rate [Right Brachial] 61 Pulse Rhythm Regular Pulse Rhythm [Right Brachial] Regular Pulse Strength Normal Pulse Strength [Right Brachial] Normal Respiratory Rate 19 19 Respiratory Effort / Characteristics Non-Labored Non-Labored Respiratory Depth Normal Normal Respiratory Pattern Regular Regular Blood Pressure 120/71 Blood Pressure [Right Arm] 120/71 Blood Pressure Mean 87 Blood Pressure Mean [Right Arm] 87 Blood Pressure Position Lying Blood Pressure Position [Right Arm] Lying Pulse Oximetry 98 98 Oxygen Delivery Method Room Air Room Air Room Air Sepsis Recent Fever Within 48 Hours No Sepsis New/Unexplained Change in Mental Status N/A Sepsis Action Taken by Nursing No Action Required 10/28/24 16:19 10/28/24 19:14 Temperature Temperature Source Pulse Rate 58 L Pulse Rate [Right Brachial] Pulse Rhythm Pulse Rhythm [Right Brachial] Pulse Strength Pulse Strength [Right Brachial] Respiratory Rate Respiratory Effort / Characteristics Respiratory Depth Respiratory Pattern Blood Pressure Blood Pressure [Right Arm] Blood Pressure Mean Blood Pressure Mean [Right Arm] Blood Pressure Position Blood Pressure Position [Right Arm] Pulse Oximetry 98 Oxygen Delivery Method Room Air Sepsis Recent Fever Within 48 Hours Sepsis New/Unexplained Change in Mental Status Sepsis Action Taken by Nursing Laboratory Data 10/28/24 16:14 10/28/24 16:14 Lab Results 10/28/24 10/28/24 Range/Units 16:14 18:58 WBC 5.29 (4.8-10.8) K/ul RBC 4.88 (4.70-6.10) M/uL Hgb 15.5 (14.0-18.0) g/dl Hct 44.9 (42.0-52.0) % MCV 92.0 (80.0-100.0) fL MCH 31.8 (25.0-34.0) pg MCHC 34.5 (32.0-36.0) g/dL RDW Std Deviation 45.0 (36.4-46.3) fL RDW Coeff of Courtney 13.2 (11.5-14.5) % Plt Count 203 (130-400) K/uL MPV 10.7 (9.4-12.4) fL Immature Gran % (Auto) 0.6 % Neut % (Auto) 66.1 % Lymph % (Auto) 15.1 % [place] % (Auto) 17.8 % Eos % (Auto) 0.2 % Baso % (Auto) 0.2 % Neut # (Auto) 3.50 (1.40-6.50) K/uL Lymph # (Auto) 0.80 L (1.20-3.40) K/uL [place] # (Auto) 0.94 H (0.11-0.59) K/uL Eos # (Auto) 0.01 (0.00-0.50) K/uL Baso # (Auto) 0.01 (0.00-0.20) K/uL Immature Gran # (Auto) 0.03 (0.01-0.20) K/uL PT 11.2 (9.0-12.0) Seconds INR 1.0 (0.9-1.1) APTT 27 (21-31) Seconds PTT Ratio 1.0 Sodium 130 L (136-145) mmol/L Potassium 5.1 (3.5-5.1) mmol/L Chloride 98 (98-107) mmol/L Carbon Dioxide 26 (21-32) mmol/L Anion Gap 6 (3-11) BUN 24 H (6-23) mg/dl Creatinine 1.12 (0.6-1.4) mg/dl Est Cr Clr Drug Dosing 47.0 ml/min eGFR 63.58 BUN/Creatinine Ratio 21.4 H (10-20) Glucose 286 H (70-99(Fasting)) mg/dl Calcium 8.8 (8.6-10.3) mg/dl Magnesium 1.7 (1.7-2.4) mg/dl Total Bilirubin 0.7 (0.2-1.0) mg/dl AST 28 (13-39) U/L ALT 20 (7-52) U/L Alkaline Phosphatase 109 H (34-104) U/L Troponin I High Sens 6.2 (0-20) pg/ml Total Protein 5.9 L (6.0-8.3) gm/dl Albumin 3.6 (3.4-5.0) gm/dl Globulin 2.3 L (2.5-4.0) gm/dl Albumin/Globulin Ratio 1.6 (0.9-2) Procalcitonin 0.18 (0-0.5) ng/ml Adenovirus (PCR) Not Detected (NotDetected) B. pertussis DNA (PCR) Not Detected (NotDetected) B.parapertussis DNA PCR Not Detected (NotDetected) C. pneumoniae DNA (PCR) Not Detected (NotDetected) Coronavirus OC43 (PCR) Not Detected (NotDetected) Coronavirus HKU1 (PCR) Not Detected (NotDetected) Coronavirus 229E (PCR) Not Detected (NotDetected) SARS-CoV-2 (PCR) Not Detected (NotDetected) Coronavirus NL63 (PCR) Not Detected (NotDetected) Human Metapneumovir PCR Not Detected (NotDetected) Influenza Type A (PCR) Not Detected (NotDetected) Influenza Type B (PCR) Not Detected (NotDetected) M. pneumoniae (PCR) Not Detected (NotDetected) Parainfluenza 1 (PCR) Not Detected (NotDetected) Parainfluenza 2 (PCR) Not Detected (NotDetected) Parainfluenza 3 (PCR) Not Detected (NotDetected) Parainfluenza 4 (PCR) Not Detected (NotDetected) RSV (PCR) Not Detected (NotDetected) Entero/Rhino (PCR) Not Detected (NotDetected) Administered Medications Discontinued Medications Ioversol (Optiray 320 125ml) 118 ml IV ONCE ONE Stop: 10/28/24 18:38 Last Admin: 10/28/24 18:37 Dose: 118 ml Documented By: EDK Imaging Data Radiologist's Impression: Chest CTA 02/23/25 16:19 CT pulmonary angiogram with IV contrast History: Dyspnea COMPARISON: 09/20/2024 TECHNIQUE: CT angiography of the chest was performed without IV contrast followed by IV contrast, including 3D post processing CTA image reconstruction. Dose reduction techniques were achieved by using automatic exposure control and/or adjustment of mA and/or kV according to patient size and/or use of iterative reconstruction technique. FINDINGS: Lungs and pleura: Right hilar mass is again partially visualized with surrounding atelectasis and right middle lobe collapse. Heart and pericardium: Heart size is normal. No pericardial effusion. Vessels: No evidence of pulmonary embolism. Mediastinum and ria: Unremarkable. Chest wall and lower neck: Unremarkable. Abdomen: Partial visualization of numerous hepatic hypodensities concerning for metastases. Bones: Degenerative changes in the thoracic spine. Degenerative changes of the shoulder joints. IMPRESSION: Similar-appearing right hilar mass with postobstructive atelectasis with right middle lobe collapse. No evidence for pulmonary embolism. Electronically signed by Edenilson Monreal 10-28-2024 7:10 PM Chest X-Ray 10/28/24 16:19 Chest radiograph, one view History: dyspnea Comparison: 06/08/2024 Findings: Single AP view of the chest performed. Continued opacity and fullness overlying the right infrahilar region. No pneumothorax. Median sternotomy wires. Status post CABG changes. The cardiomediastinal silhouette is within normal limits. Normal pulmonary vascularity. No evidence for lymphadenopathy. No visualized bony or soft tissue abnormality. Advanced degenerative changes of the glenohumeral joints. Impression: Continued opacity and fullness overlying the right infrahilar region. No acute process Electronically signed by Edenilson Monreal 10-28-2024 5:18 PM Discharge Plan Visit Data Chief Complaint: Respiratory Problems Stated Complaint: RESPIRATORY ISSUES ED Provider: Tono Brown Discharge Problem: Weakness, Hyponatremia, Lung mass, TAMAYO (dyspnea on exertion) Patient Disposition: Being Evaluated by Hospitalist Forms Stand Alone Forms: [facility] Prescriptions Prescriptions: No Action nitroglycerin 0.4 mg tablet, sublingual 0.4 mg sublingual Q5M PRN (Reason: Chest Pain) Rx Instructions: do not exceed 3 doses per episode timolol 0.5 % drops 1 drp OPL BID Zyrtec 10 mg capsule 10 mg PO DAILY atorvastatin 10 mg tablet 10 mg PO DAILY metoprolol succinate 25 mg tablet extended release 24 hr 25 mg PO DAILY metformin 500 mg tablet 500 mg PO TID famciclovir 500 mg Tablet 500 mg PO DAILY clopidogrel 75 mg Tablet 75 mg PO QAM Qty: 3 0RF lisinopril 2.5 mg Tablet 2.5 mg PO QAM Qty: 30 0RF trazodone 50 mg tablet 50 mg PO HS buspirone 5 mg tablet 5 mg PO TID PRN (Reason: Anxiety) Zirgan 0.15 % gel 1 ea OPR HS Rx Instructions: 1/2 inch ribbon dose to right eye at bedtime aspirin,buffd-calcium carb-mag [Tri-Buffered Aspirin] 325 mg Tablet 325 mg PO DAILY nateglinide 120 mg tablet 120 mg PO AC Rx Instructions: HOLD DOSE IF MEAL IS MISSED megestrol 40 mg Tablet 40 mg PO BID Referrals Referrals: Juan Alberto Valdez MD [Primary Care Provider] -
[2024-10-28 16:57] LABS: Troponin I High Sensitivity 6.2 pg/ml (0-20)
[2024-10-28 17:03] LABS: Partial Thromboplastin Time 27 Seconds (21-31); Prothrombin Time 11.2 Seconds (9.0-12.0)
--- NOTE | 2024-10-28 17:18 | XRay Report ---
Chest radiograph, one view History: dyspnea Comparison: 06/08/2024 Findings: Single AP view of the chest performed. Continued opacity and fullness overlying the right infrahilar region. No pneumothorax. Median sternotomy wires. Status post CABG changes. The cardiomediastinal silhouette is within normal limits. Normal pulmonary vascularity. No evidence for lymphadenopathy. No visualized bony or soft tissue abnormality. Advanced degenerative changes of the glenohumeral joints. Impression: Continued opacity and fullness overlying the right infrahilar region. No acute process Electronically signed by Edenilson Monreal 10-28-2024 5:18 PM
[2024-10-28] MEDS: OPTIRAY 320 125ml IV ONE (18:37)
--- NOTE | 2024-10-28 19:10 | CT Scan Report ---
CT pulmonary angiogram with IV contrast History: Dyspnea COMPARISON: 09/20/2024 TECHNIQUE: CT angiography of the chest was performed without IV contrast followed by IV contrast, including 3D post processing CTA image reconstruction. Dose reduction techniques were achieved by using automatic exposure control and/or adjustment of mA and/or kV according to patient size and/or use of iterative reconstruction technique. FINDINGS: Lungs and pleura: Right hilar mass is again partially visualized with surrounding atelectasis and right middle lobe collapse. Heart and pericardium: Heart size is normal. No pericardial effusion. Vessels: No evidence of pulmonary embolism. Mediastinum and ria: Unremarkable. Chest wall and lower neck: Unremarkable. Abdomen: Partial visualization of numerous hepatic hypodensities concerning for metastases. Bones: Degenerative changes in the thoracic spine. Degenerative changes of the shoulder joints. IMPRESSION: Similar-appearing right hilar mass with postobstructive atelectasis with right middle lobe collapse. No evidence for pulmonary embolism. Electronically signed by Edenilson Monreal 10-28-2024 7:10 PM
--- NOTE | 2024-10-28 19:48 | History & Physical Report ---
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 Both patient and his son are interested in discussing options for palliative care given patient's current condition. ED evaluation reveals no leukocytosis, normal H&H, normal PT/INR, sodium 130, BUN 24, ratio 21.4, alk phos 109, protein 5.9, globulin 2.3, Pro-Toño 0.18, BioFire pending; CXR with continued opacity and fullness over right infrahilar region, and CTA chest with similar appearing R hilar mass with postobstructive atelectasis RML collapse, no evidence of PE; EKG normal sinus rate 62 bpm. Most recent hospitalization 06/09/2024 until 06/14/2024 for acute ischemic stroke. #Palliative discussion for carcinoid tumor R lung Presenting with worsening SOB and weakness for "weeks." Carcinoid of R lung initial identified 08/2023, and in 09/2023 diagnosed with low-grade neuroendocrine tumor; CTAP 03/2024 with worsening multifocal hepatic metastatic disease. On monthly lanreotide, megestrol (appetite/weight; follows with heme- onc with most recent visit 10/18/2024. Patient's son and patient are looking for palliative discussion moving forward. Patient resides at [facility] and would prefer to stay at that location. - CBC without evidence of new infection or anemia; procalcitonin WNL; CXR and chest CTA without acute findings. - CPAP at night, otherwise O2 as needed - Hypovolemic on exam; gentle IVF of LR @ 80 mL/h - Tums as needed abdominal pain, Zofran as needed N/V - PT/OT consulted - Palliative care consulted- appreciate input + recs #Hyponatremia Likely secondary to poor intake; asymptomatic + hypovolemic on exam at admission. - Na 130, glucose 286; corrected 134 - BMP am - Serum osmol, Urine Na, Urine Osmol pending - IVF LR @ 80 mL/hr #T2DM H/o DMT2; On metformin, nateglinide at home - Most recent A1C 06/2024 @ 8.9% - Hold po meds; BSG ACHS - SSI with target BSG range 110-160mg/dL, CF 35, carb ratio 10 - Pharm glycemic management consult placed, adjust regimen as needed- Appreciate assistance #HTN- Lisinopril, metoprolol - HOLD given soft BP + borderline bradycardia at admission #Mood/Insomnia- Buspirone prn; trazodone; CPAP HS #HLD- Atorvastatin #H/o CVA- ASA, plavix Dispo: Admit, med/sx VTE Prophylaxis: Lovenox This document was dictated utilizing StudySoup. Please excuse any grammatical errors that may be secondary to use of this software. 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 States that the SOB and weakness has been ongoing for weeks, but it became more bothersome on the day of arrival so he decided to come in. States "I feel like I cannot breathe" with minimal activity which is worse from his baseline. Also feels generally weak, but denying syncope or dizziness. Patient's son notes that the patient has been unable to even get from sitting to standing without appearing winded and weak. Patient does not feel as though he is going to have a syncopal event and does not feel any dizziness. Does admit to occasional anorexia and abdominal pain, bu t none at the time of admission. Overall denying chest pain, palpitations, N/V/D/C, numbness/tingling, fever/chills, URI symptoms, or LUTS. Patient's son is in the room at time of visit. Both patient and his son are interested in discussing options for palliative care given patient's current condition. ED evaluation reveals no leukocytosis, normal H&H, normal PT/INR, sodium 130, BUN 24, ratio 21.4, alk phos 109, protein 5.9, globulin 2.3, Pro-Toño 0.18, BioFire pending; CXR with continued opacity and fullness over right infrahilar region, and CTA chest with similar appearing R hilar mass with postobstructive atelectasis RML collapse, no evidence of PE; EKG normal sinus rate 62 bpm. Most recent hospitalization 06/09/2024 until 06/14/2024 for acute ischemic stroke. Please see Dr. Hoff's attestation for adjustments/additions to treatment plan. Allergies Allergy/AdvReac Type Severity Reaction Status Date / Time morphine Allergy Unknown Verified 10/28/24 18:30 Home Medications Medication Instructions Recorded Confirmed Type atorvastatin 10 mg tablet 10 mg PO DAILY 09/08/23 10/28/24 History metoprolol succinate 25 mg 25 mg PO DAILY 09/08/23 10/28/24 History tablet,extended release 24 hr metformin 500 mg tablet 500 mg PO TID 10/04/23 10/28/24 History nitroglycerin 0.4 mg sublingual 0.4 mg sublingual Q5M PRN Chest 10/04/23 10/28/24 History tablet Pain timolol 0.5 % eye drops 1 drp OPL BID 10/04/23 10/28/24 History cetirizine 10 mg capsule (Zyrtec) 10 mg PO DAILY 03/06/24 10/28/24 History famciclovir 500 mg tablet 500 mg PO DAILY 06/08/24 10/28/24 History clopidogrel 75 mg tablet 75 mg PO QAM #3 tabs 06/14/24 10/28/24 Rx lisinopril 2.5 mg tablet 2.5 mg PO QAM #30 tabs 06/14/24 10/28/24 Rx aspirin,buffered (calcium 325 mg PO DAILY 10/28/24 10/28/24 History carbonate-magnesium) 325 mg tablet (Tri-Buffered Aspirin) buspirone 5 mg tablet 5 mg PO TID PRN Anxiety 10/28/24 10/28/24 History ganciclovir 0.15 % eye gel (Zirgan) 1 ea OPR HS 10/28/24 10/28/24 History megestrol 40 mg tablet 40 mg PO BID 10/28/24 10/28/24 History nateglinide 120 mg tablet 120 mg PO AC 10/28/24 10/28/24 History trazodone 50 mg tablet 50 mg PO HS 10/28/24 10/28/24 History 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" Dry eye syndrome Prostate cancer Sleep apnea Coronary artery disease Hyperlipidemia Melanoma Hypertension Diabetes Surgical History History of hemorrhoidectomy H/O right inguinal hernia repair S/P colonoscopy History of cataract surgery Bilateral S/P appendectomy History of tonsillectomy History of surgery Surgery both eyes for "droopy eyes" H/O prostatectomy History of cholecystectomy History of open heart surgery Triple bypass surgery Status post Mohs surgery 09/30/21 H/O angioplasty Family History Mother , in her 90s Fall Stroke associated with fall Father , in his 60s Lung cancer Smoker Brother Myocardial infarction Son No problems noted. 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 [employer] Other Information That Helps Us Care for You: No Feels Safe at Home: Yes Safety Concerns: Feels Safe At This Time Diet: regular caffeine: Yes (2 cups/day - decaf) during the past year weight has: remained stable Assistive Devices: CPAP and Wheelchair Review of Systems Review of Systems: All systems reviewed & are unremarkable except as noted in Subjective Physical Exam Physical Exam: General: No acute distress, appears chronically ill; thin; hemodynamically stable, not hypoxic Skin: Warm and dry Head: Normocephalic, atraumatic Eyes: PERRL, conjunctivae clear, sclera non-icteric; EOM intact; ectropion of eyelids bilaterally ENT: External ear and ear canal without swelling; nose atraumatic; good dentition, tongue normal appearance, pharynx normal Neck: Supple, no LAD Cardio: RRR, no M/G/R, S1 and S2 normal; surgical scar on chest Resp: No respiratory distress, Lungs CTA in all lobes bilaterally, no wheezes, rales, or rhonchi Abdomen: Soft, symmetric, nontender; no masses or hepatosplenomegaly; Bowel sounds normoactive MSK: No deformities; pulses palpable and equal; no edema. Neuro: Awake, alert; CN grossly intact Psych: Appropriate mood and affect; good judgement and insight. Son is present in room at time of visit. Results & Data Results & Data Vital Signs (Past 12 Hours) Vital Signs Temp Pulse Pulse Resp BP BP Pulse Ox 10/28/24 19:14 58 L 10/28/24 16:19 98 10/28/24 15:57 36.8 C 61 19 120/71 98 10/28/24 15:57 10/28/24 15:57 36.8 C 61 19 120/71 98 O2 Del Method 10/28/24 19:14 10/28/24 16:19 Room Air 10/28/24 15:57 Room Air 10/28/24 15:57 Room Air 10/28/24 15:57 Room Air Laboratory Results 10/28/24 16:14 WBC 5.29 RBC 4.88 Hgb 15.5 Hct 44.9 MCV 92.0 MCH 31.8 MCHC 34.5 RDW Std Deviation 45.0 RDW Coeff of Courtney 13.2 Plt Count 203 MPV 10.7 Immature Gran % (Auto) 0.6 Neut % (Auto) 66.1 Lymph % (Auto) 15.1 Josephine % (Auto) 17.8 Eos % (Auto) 0.2 Baso % (Auto) 0.2 Neut # (Auto) 3.50 Lymph # (Auto) 0.80 L Josephine # (Auto) 0.94 H Eos # (Auto) 0.01 Baso # (Auto) 0.01 Immature Gran # (Auto) 0.03 PT 11.2 INR 1.0 APTT 27 PTT Ratio 1.0 Sodium 130 L Potassium 5.1 Chloride 98 Carbon Dioxide 26 Anion Gap 6 BUN 24 H Creatinine 1.12 Est Cr Clr Drug Dosing 47.0 eGFR 63.58 BUN/Creatinine Ratio 21.4 H Glucose 286 H Calcium 8.8 Magnesium 1.7 Total Bilirubin 0.7 AST 28 ALT 20 Alkaline Phosphatase 109 H Troponin I High Sens 6.2 Total Protein 5.9 L Albumin 3.6 Globulin 2.3 L Albumin/Globulin Ratio 1.6 Procalcitonin 0.18 Diagnostic Findings Chest CTA 10/28/24 16:19 CT pulmonary angiogram with IV contrast History: Dyspnea COMPARISON: 09/20/2024 TECHNIQUE: CT angiography of the chest was performed without IV contrast followed by IV contrast, including 3D post processing CTA image reconstruction. Dose reduction techniques were achieved by using automatic exposure control and/or adjustment of mA and/or kV according to patient size and/or use of iterative reconstruction technique. FINDINGS: Lungs and pleura: Right hilar mass is again partially visualized with surrounding atelectasis and right middle lobe collapse. Heart and pericardium: Heart size is normal. No pericardial effusion. Vessels: No evidence of pulmonary embolism. Mediastinum and ria: Unremarkable. Chest wall and lower neck: Unremarkable. Abdomen: Partial visualization of numerous hepatic hypodensities concerning for metastases. Bones: Degenerative changes in the thoracic spine. Degenerative changes of the shoulder joints. IMPRESSION: Similar-appearing right hilar mass with postobstructive atelectasis with right middle lobe collapse. No evidence for pulmonary embolism. Electronically signed by Edenilson Monreal 10-28-2024 7:10 PM Chest X-Ray 10/28/24 16:19 Chest radiograph, one view History: dyspnea Comparison: 06/08/2024 Findings: Single AP view of the chest performed. Continued opacity and fullness overlying the right infrahilar region. No pneumothorax. Median sternotomy wires. Status post CABG changes. The cardiomediastinal silhouette is within normal limits. Normal pulmonary vascularity. No evidence for lymphadenopathy. No visualized bony or soft tissue abnormality. Advanced degenerative changes of the glenohumeral joints. Impression: Continued opacity and fullness overlying the right infrahilar region. No acute process Electronically signed by Edenilson Monreal 10-28-2024 5:18 PM ECG Additional Comments: NSR, LAE 62 bpm, AK 172, QRS 78, QT/QTc 386/391, PRT 52/-29/97 Code Status & VTE Plan Code Status DNR/DNI VTE Prophylaxis Plan VTE Prophylaxis will be ordered: Yes Supervising Physician Co-Signing Physician Notes Attending addendum: I have physically seen this patient, have supervised the medical residents activities, and agree with the H&P unless as otherwise noted. Assessment and Plan: The patient is an 89-year-old female past medical history including right lung carcinoid tumor with mets to liver, hypertension, hyperlipidemia, diabetes mellitus, and coronary disease who presents to the emergency department with shortness of breath and generalized weakness. Patient and son are both interested in pursuing the possibility of palliative care due to patient's progressively worsening condition. Carcinoid tumor right lung/interested in palliative care- Patient has had symptoms progressively worsening over the past number of weeks. He presently lives at [facility], and would prefer to stay at that location Consulting palliative care for recommendations at this point CPAP overnight LR at 80 mL/h x 1 L PT/OT consulted Chronic medical conditions: Diabetes mellitus-holding metformin and oral medications.Placed on Accu-Cheks with NovoLog SSI Hypertension-holding lisinopril and metoprolol due to low blood pressure and bradycardia Mood/insomnia-Buspirone and trazodone as noted Hyperlipidemia-atorvastatin Primary admission with patient as noted above is for assessment for palliative care PG Care Time/CCT Total # of Minutes Spent Total Time Spent with Patient: Total time spent is greater than 50% in coordination of care (as documented) at patient's floor/unit and/or counseling patient: Coding Level of Care Code 19481 INT INP/OBS CARE 3/75MIN Diagnoses Carcinoid tumor of right lung D3A.090 Hyponatremia E87.1
[2024-10-28 20:02] LABS: Adenovirus PCR Not Detected (NotDetected); Bordetella parapertussis PCR Not Detected (NotDetected); Bordetella pertussis PCR Not Detected (NotDetected); Chlamydia pneumoniae PCR Not Detected (NotDetected); Coronavirus 229E PCR Not Detected (NotDetected); Coronavirus CoV-2 (COVID19)PCR Not Detected (NotDetected); Coronavirus HKU1 PCR Not Detected (NotDetected); Coronavirus NL63 PCR Not Detected (NotDetected); Coronavirus OC43PCR Not Detected (NotDetected); Human Metapneumovirus PCR Not Detected (NotDetected); Influenza A PCR Not Detected (NotDetected); Influenza B PCR Not Detected (NotDetected); Mycoplasma pneumoniae PCR Not Detected (NotDetected); Parainfluenza Virus 1 PCR Not Detected (NotDetected); Parainfluenza Virus 2 PCR Not Detected (NotDetected); Parainfluenza Virus 3 PCR Not Detected (NotDetected); Parainfluenza Virus 4 PCR Not Detected (NotDetected); Respiratory Syncytial VirusPCR Not Detected (NotDetected); Rhinovirus/Enterovirus PCR Not Detected (NotDetected)
[2024-10-28] MEDS ORDERED: CALCIUM CARBONATE 500 MG CHEWABLE TAB PO PRN (20:04)
[2024-10-28] MEDS ORDERED: ONDANSETRON INJ 2 MG/ML 2 ML VIAL IV PRN (20:04)
[2024-10-28] MEDS: LACTATED RINGER'S 1,000 ML IV SCH (20:38)
[2024-10-28] MEDS ORDERED: DEXTROSE 50% 50 ML SYRINGE IV PRN (21:42)
[2024-10-28] MEDS ORDERED: PHARMACY GLYCEMIC MGMT CONSULT PRN (21:42)
[2024-10-28] MEDS ORDERED: GLUCOSE 10 TAB/TUBE PO PRN (21:42)
[2024-10-28] MEDS ORDERED: NITROGLYCERIN SL 0.4 MG/TAB TAB SL PRN (21:42)
[2024-10-28] MEDS ORDERED: busPIRone 5 MG TAB PO PRN (21:42)
[2024-10-28] MEDS ORDERED: GLUCAGON FOR INJ 1 MG VIAL SQ PRN (21:42)
[2024-10-28] MEDS ORDERED: CARBOHYDRATES FOR HYPOGLYCEMIA PO PRN (21:42)
[2024-10-28] MEDS ORDERED: GLUCOSE 40% GEL 15 GM TUBE PO PRN (21:42)
[2024-10-28] MEDS: INSULIN ASPART PER UNIT CHARGE SC SCH (22:33)
[2024-10-28] MEDS: ENOXAPARIN INJ 40 MG/0.4 ML SYR SQ SCH (22:37)
[2024-10-28] MEDS: MEGESTROL ACETATE 40 MG TAB PO SCH (22:38)
[2024-10-28] MEDS: traZODone HCL 50 MG TAB PO SCH (22:38)
[2024-10-28] MEDS: LANTUS PER UNIT CHARGE SC SCH (22:40)
[2024-10-28] MEDS: TIMOLOL MALEATE 0.5% OP SOLN 5 ML BTL OPL SCH (22:41)
[2024-10-29 04:31] LABS: Appearance Urine Clear (Clear); Bilirubin Urine Negative (Negative); Blood Urine Negative (Negative); Color Urine Yellow; Glucose Urine UA 2+ (Negative); Ketones Urine Trace (Negative); Leukocyte Esterase Urine Negative (Negative); Nitrite Urine Negative (Negative); Protein Urine Negative (Negative); Specific Gravity Urine 1.045 (1.000-1.030); Urobilinogen Urine Positive (Negative); pH Urine 5.5 (4.5-7.5)
[2024-10-29 08:58] LABS: Estimated Average Glucose 203 mg/dl; Hemoglobin A1C 8.7 % (4.5-5.6)
[2024-10-29 09:24] LABS: BUN Creatinine Ratio 19.8 (10-20); Calcium 8.8 mg/dl (8.6-10.3); Creatinine Clr Calc Pharmacy 57.8 ml/min; Potassium 4.1 mmol/L (3.5-5.1)
[2024-10-29] MEDS: ATORVASTATIN 10 MG TAB PO SCH (09:37)
[2024-10-29] MEDS: ASPIRIN/ALUM/MAGNES/CAL CARB 325 MG TAB PO SCH (09:37)
[2024-10-29] MEDS: CETIRIZINE HCL 10 MG TABLET PO SCH (09:38)
[2024-10-29] MEDS: CLOPIDOGREL BISULFATE 75 MG TAB PO SCH (09:38)
--- NOTE | 2024-10-29 11:38 | Pharmacy Report ---
Pharmacy Glycemic Short Note 2 - Date of Service October 29, 2024 - Glycemic Short BSG Results (Last 24 hours): 10/28/24 10/28/24 10/29/24 16:14 22:33 06:51 Glucose 286 H 126 H POC Glucose 159 H 10/29/24 07:16 Glucose POC Glucose 143 H OUTPATIENT ANTIDIABETIC REGIMEN: * metformin 500mg po TID * nateglinide 120mg po TID HbA1c: 8.7% on 10/29/24 ASSESSMENT: * 89 year old male admitted 10/28 for worsening SOB and weakness. PMH significant for carcinoid tumor of the right lunch with mets to the liver. Palliative care has been consulted. Pharmacy has been consulted for glycemic management while he is admitted. * BSG last evening was 159mg/dL. 7 units of Lantus x 1 was given and weight based bolus insulin with a stress of 2 was ordered. * Fasting BSG was 143mg/dL this morning and zeb to 190mg/dL with lunch today. Will add a Lantus scale at bedtime starting tonight (0,5, or 7 units depending on BSG) and will continue the bolus insulin as ordered last evening. PLAN FOR INPATIENT GLYCEMIC CONTROL: * Hold outpatient oral diabetes medications * Basal insulin * Lantus 7 units SQ x 1 last evening and Lantus scale QHS starting tonight (BSG < 140 hold, BSG 140-180 give 5 units, BSG > 180 give 7 units) * Bolus insulin * NovoLog per scale ACHS or Q6hrs while NPO * Goal Range: Low 110 mg/dL - High 160 mg/dL * Correction Factor: 35 mg/dL/unit * Nutritional / Prandial insulin per carb ratio of 1 unit per 10 grams CHO consumed
--- NOTE | 2024-10-29 15:26 | Electrocardiogram Report ---
Test Reason : Blood Pressure : */* mmHG Vent. Rate : 62 BPM Atrial Rate : 62 BPM P-R Int : 172 ms QRS Dur : 78 ms QT Int : 386 ms P-R-T Axes : 52 -29 97 degrees QTcB Int : 391 ms Normal sinus rhythm Possible Left atrial enlargement Inferior infarct (cited on or before 05-Aug-2023) Abnormal ECG When compared with ECG of 08-Jun-2024 19:03, SC interval has decreased Nonspecific T wave abnormality now evident in Lateral leads Confirmed by Dami Osei ([id number]) on 10/29/2024 3:26:20 PM Referred By: [facility] Confirmed By: Dami Osei
--- NOTE | 2024-10-29 17:43 | Hospitalist Progress Note ---
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 Both patient and his son are interested in discussing options for palliative care given patient's current condition. ED evaluation reveals no leukocytosis, normal H&H, normal PT/INR, sodium 130, BUN 24, ratio 21.4, alk phos 109, protein 5.9, globulin 2.3, Pro-Toño 0.18, BioFire pending; CXR with continued opacity and fullness over right infrahilar region, and CTA chest with similar appearing R hilar mass with postobstructive atelectasis RML collapse, no evidence of PE; EKG normal sinus rate 62 bpm. Most recent hospitalization 06/09/2024 until 06/14/2024 for acute ischemic stroke. #Palliative discussion for carcinoid tumor R lung Presenting with worsening SOB and weakness for "weeks." Carcinoid of R lung initial identified 08/2023, and in 09/2023 diagnosed with low-grade neuroendocrine tumor; CTAP 03/2024 with worsening multifocal hepatic metastatic disease. On monthly lanreotide, megestrol (appetite/weight; follows with heme- onc with most recent visit 10/18/2024. Patient's son and patient are looking for palliative discussion moving forward. Patient resides at [facility] and would prefer to stay at that location. - CBC without evidence of new infection or anemia; procalcitonin WNL; CXR and chest CTA without acute findings. - CPAP at night, otherwise O2 as needed - Hypovolemic on exam; given gentle IVF of LR @ 80 mL/h - Zofran as needed N/V - PT/OT consulted but Mr. Carcamo prefers to hold off for now. He is mostly wheelchair bound at [facility] - Palliative care consulted- discussed, family meeting planned for Tuesday when another son arrives - He is followed by Dr. Woods at [facility] #RML collapse caused by carcinoid tumor - no evidence of postobstructive pneumonia currently, procalcitonin was 0.18 and no fever or leukocytosis #Hypovolemic hyponatremia and component of translational hyponatremia from hyperglycemia - poor po intake. Resolved on IV fluids. 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 He reports his father is comfortable at this time, it seems they may be leaning toward hospice but would like more family discussion and to explore options. Admission and Anticipated Discharge Date Admission Date: October 28, 2024 Subjective Mr. Carcamo reports he's comfortable. Not short of breath (at rest right now) denies chest or abdominal pain. He has ketones on his breath. When asked about eating he lacks appetite and says the food is terrible at [employer]. Per records he's down 23 pounds since June Physical Exam 2 Physical Exam: PHYSICAL EXAMINATION Last 24h vital signs reviewed, see documentation in flowsheet General: frail and cachectic appearing gentleman, lying flat in hospital bed HEENT: Normocephalic, atraumatic, pupils round and equal, sclerae anicteric, no conjunctival injection, moist mucus membranes ketotic breath Lungs: Normal respiratory effort. Clear to auscultation bilaterally. No RRW Heart: Regular rate and rhythm, no murmurs. No JVD Abdomen: scaphoid, Soft, nontender, nondistended. Bowel sounds present. Extremities: Warm, dry, well-perfused. No extremity edema. Neuro: Alert and oriented to situation, does not provide a lot of verbal output, face symmetric, moves 4 extremities Psych: not very interactive. Normal affect and behavior Results & Data Results & Data Vital Signs (Past 12 Hours) Vital Signs Temp Pulse Resp BP Pulse Ox O2 Del Method 10/29/24 14:36 97.2 F L 55 L 16 107/61 96 Room Air 10/29/24 07:22 97.7 F 54 L 16 145/69 H 97 Room Air Laboratory Results 10/28/24 16:14 10/29/24 06:51 PG Care Time/CCT Total # of Minutes Spent Total Time Spent with Patient: Total time spent is greater than 50% in coordination of care (as documented) at patient's floor/unit and/or counseling patient: Coding Level of Care Code 63531 SUB INP/OBS CARE 2/35MIN Diagnoses Carcinoid tumor of right lung D3A.090 Hyponatremia E87.1
[2024-10-29] MEDS: ACETAMINOPHEN 500 MG TAB PO PRN (21:43)
[2024-10-29] MEDS: LANTUS PER UNIT CHARGE SC SCH (21:54)
[2024-10-30 06:20] LABS: BUN Creatinine Ratio 21.2 (10-20); Calcium 8.6 mg/dl (8.6-10.3); Creatinine Clr Calc Pharmacy 53.2 ml/min; Potassium 4.3 mmol/L (3.5-5.1)
[2024-10-30 09:41] LABS: Thyroid Stimulating Hormone 4.269 uIu/ml (0.300-4.500)
--- NOTE | 2024-10-30 11:11 | Palliative Family Discussion ---
Date of Service October 29, 2024 Patient Directed Conference Time of Meetin-1pm Participants: Lucy Bishop DNP Patient participation: yes Patient Support System: son Armen Other Healthcare Provider Participation: None Meeting Location: bedside Advanced Directive available: pt wants DNR/DNI, no more cancer Rx This ACP meeting was held at bedside face to face with LISA DEVLINVAZQUEZ. This meeting was necessary for determining the appropriate course of treatment. Topics of Discussion Topics of Discussion: I met with Mr. Carcamo and his son Armen for 45min face to face.They both are leaning towards hospice but there is a son coming from [facility] "with some medical experience" who wants to meet before any final discussions so a meeting is scheduled for tomorrow at 10am. The son coming in started a [employer] with alumni from [facility], called [employer]. I spoke with Dr Woods who also agrees with hospice and says he has been steadily declining. Pt and Armen told me his /mom was on hospice with [facility] and they want [facility] once the other son arrives and hopefully gets on board. He has some anxiety and nausea, for which I am scheduling BID low dose ativan to try Other Content of Meetin. Opportunity given for participants to speak and ask questions. 2. Participants were assured of attention to patient comfort. 3. Reassurance provided. 4. Support was provided for informed, good-bala decisions. 5. Emotions expressed by family were acknowledged and addressed. [facility] Weds at 10am when other son arrives Thank you for allowing us to participate in the ongoing care of this patient. Please page with any additional concerns. Monica Bishop DNP Director, Palliative Medicine
--- NOTE | 2024-10-30 16:05 | Hospitalist Progress Note ---
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 #SOB - CTA chest at admission w/o PE or pneumonia or effusion/edema Perhaps mucous plugging in the RML (chronically collapsed due to mass effect from his carcinoid tumor) Can't rule out bronchospasm But stable in room air with normal exam today #weakness - likely due to stage 4 lung cancer #Palliative discussion for carcinoid tumor R lung with mets Presented with worsening SOB and weakness/weight loss/failure to thrive. 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 CT abd/pelvis 03/2024 with worsening multifocal hepatic metastatic disease. On monthly lanreotide, megestrol. Appreciate palliative care consultation. Family meeting planned for tomorrow, 10/31. Family leaning towards hospice in light of ongoing decline, malnutrition, failure to thrive, etc. #Hyponatremia - Na level 133 Likely secondary to poor intake; asymptomatic + hypovolemic on exam at admission. 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 Consider NaCl tabs daily #T2DM - On metformin, nateglinide at home; both on hold Most recent A1C 06/2024 - 8.9% Pharmacy glycemic team providing oversight of DM - currently on basal-bolus insulins #HTN- Lisinopril, metoprolol both on hold due to normal or low-normal BPs (likely due to severe weight loss) #Hyperlipidemia - Atorvastatin, but d/c if he goes hospice status #H/o CVA - ASA, plavix for secondary prevention #abdominal pain - start with KUB x-ray; add pepcid 20mg x 1 now then PPI daily VTE Prophylaxis: Rastax son updated at bedside very poor prognosis family meeting tomorrow to discuss hospice Admission and Anticipated Discharge Date Admission Date: October 28, 2024 Subjective patient complains of right-sided abd pain during the visit states it is sometimes on the left side no stool since admission no vomiting despite the pain eating very little he is quite tired having reflux symptoms at times as well son at bedside during the visit son arrived today from out of town; states that his father has lost more weight and declined further than his last visit with him 3 weeks ago Review of Systems Review of Systems: gen - weak, fatigued cv - no chest pain pulm - no dyspnea (had such at admission) Physical Exam Physical Exam: gen - thin/cachectic, NAD; very weak mouth - MMM neck - no JVD heart - RRR, s1 s2, no murmur lungs - CTA B/l, slightly decreased BS right lung abd - soft ND BS+; scaphoid abdomen; liver edge palpable; tender junction of RUQ/RLQ; no peritoneal signs ext - no edema, pulses 2+ b/l Results & Data Results & Data Vital Signs (Past 12 Hours) Vital Signs Temp Pulse Resp BP Pulse Ox O2 Del Method 10/30/24 15:11 36.3 C L 66 16 121/72 97 Room Air 10/30/24 07:21 36.4 C L 72 16 134/78 97 Room Air Laboratory Results Laboratory Results - last 24 hr 10/30/24 10/30/24 10/30/24 05:48 07:22 11:02 Sodium 133 L Potassium 4.3 Chloride 100 Carbon Dioxide 29 Anion Gap 4 BUN 21 Creatinine 0.99 Est Cr Clr Drug Dosing 53.2 eGFR 73.73 BUN/Creatinine Ratio 21.2 H Glucose 99 POC Glucose 93 254 H Calcium 8.6 TSH 4.269 10/30/24 10/30/24 16:32 20:24 Sodium Potassium Chloride Carbon Dioxide Anion Gap BUN Creatinine Est Cr Clr Drug Dosing eGFR BUN/Creatinine Ratio Glucose POC Glucose 166 H 119 H Calcium TSH PG Care Time/CCT Total # of Minutes Spent Total Time Spent with Patient: Total time spent is greater than 50% in coordination of care (as documented) at patient's floor/unit and/or counseling patient: Coding Level of Care Code 36144 SUB INP/OBS CARE 2/35MIN Diagnoses Carcinoid tumor of right lung D3A.090 Hyponatremia E87.1 Severe protein-calorie malnutrition E43 Abdominal pain R10.9 Diabetes E11.9 Coronary artery disease I25.10
[2024-10-30] MEDS: FAMOTIDINE 20MG IV PUSH 20 MG/5 ML SYR IV STA (18:38)
--- NOTE | 2024-10-30 18:47 | XRay Report ---
INDICATION: Abdominal pain. TECHNIQUE: 4 views of the abdomen. COMPARISON: CT from 03/28/2024. FINDINGS: Mild to moderate amount retained colonic stool. Dilated small bowel loops in midabdomen. No free air. No pathologic calcifications. No acute osseous abnormality. IMPRESSION: 1. Dilated small bowel loops in midabdomen could relate to ileus or obstruction. Follow-up recommended. 2. Mild amount retained colonic stool. Electronically signed by Pedro Maldonado 10-30-2024 6:47 PM
--- NOTE | 2024-10-30 19:27 | Palliative Care Consultation ---
Date of Consultation October 30, 2024 Assessment & Plan (1) Weakness generalized: (2) Advanced care planning/counseling discussion: I had a 45min face to face ACP meeting with Marcio and his son Armen. They have been having many heart to heart talks Marcio feels he is weakening and cancer therapy is not curative. 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 Please page with any additional concerns. Monica Bishop DNP Director, Palliative Medicine History of Present Illness Attending Physician: Trey Leon MD History of Present Illness Mr Carcamo has adv cancer and progressive decline he is growing weaker and unable to tolerate therapies he is seen bedside with son Armen He is at times a little unfocused Armen says another brother is flying in tomorrow Mr Carcamo says he is growing weaker and elected to stop cancer treatments He shares his 3 yr ago and was on hospice, he feels his time is coming to an end and he would like hospice Allergies Allergy/AdvReac Type Severity Reaction Status Date / Time morphine Allergy Unknown Verified 10/28/24 18:30 Home Medications Medication Instructions Recorded Confirmed Type atorvastatin 10 mg tablet 10 mg PO DAILY 09/08/23 10/28/24 History metoprolol succinate 25 mg 25 mg PO DAILY 09/08/23 10/28/24 History tablet,extended release 24 hr metformin 500 mg tablet 500 mg PO TID 10/04/23 10/28/24 History nitroglycerin 0.4 mg sublingual 0.4 mg sublingual Q5M PRN Chest 10/04/23 10/28/24 History tablet Pain timolol 0.5 % eye drops 1 drp OPL BID 10/04/23 10/28/24 History cetirizine 10 mg capsule (Zyrtec) 10 mg PO DAILY 03/06/24 10/28/24 History famciclovir 500 mg tablet 500 mg PO DAILY 06/08/24 10/28/24 History clopidogrel 75 mg tablet 75 mg PO QAM #3 tabs 06/14/24 10/28/24 Rx lisinopril 2.5 mg tablet 2.5 mg PO QAM #30 tabs 06/14/24 10/28/24 Rx aspirin,buffered (calcium 325 mg PO DAILY 10/28/24 10/28/24 History carbonate-magnesium) 325 mg tablet (Tri-Buffered Aspirin) buspirone 5 mg tablet 5 mg PO TID PRN Anxiety 10/28/24 10/28/24 History ganciclovir 0.15 % eye gel (Zirgan) 1 ea OPR HS 10/28/24 10/28/24 History megestrol 40 mg tablet 40 mg PO BID 10/28/24 10/28/24 History nateglinide 120 mg tablet 120 mg PO AC 10/28/24 10/28/24 History trazodone 50 mg tablet 50 mg PO HS 10/28/24 10/28/24 History Patient History Medical History Glaucoma 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" Dry eye syndrome Prostate cancer Sleep apnea Coronary artery disease Hyperlipidemia Melanoma Hypertension Diabetes Surgical History History of hemorrhoidectomy H/O right inguinal hernia repair S/P colonoscopy History of cataract surgery Bilateral S/P appendectomy History of tonsillectomy History of surgery Surgery both eyes for "droopy eyes" H/O prostatectomy History of cholecystectomy History of open heart surgery Triple bypass surgery Status post Mohs surgery 09/30/21 H/O angioplasty Family History Mother , in her 90s Fall Stroke associated with fall Father , in his 60s Lung cancer Smoker Brother Myocardial infarction Son No problems noted. 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 Other Information That Helps Us Care for You: No Feels Safe at Home: Yes Safety Concerns: Feels Safe At This Time Diet: regular caffeine: Yes (2 cups/day - decaf) during the past year weight has: remained stable Assistive Devices: CPAP and Wheelchair Review of Systems Review of Systems: All systems reviewed & are unremarkable except as noted in Subjective Physical Exam Physical Exam: Frail, elderly male, cachectic Bitemp wasting, perrla, eomi's MM sl dry dentition intact Neck supple, no stridor Lungs diminished CV s1s2 Abd scaphoid, NTP Gen weakness AAOx3 Results & Data Vital Signs (Past 12 Hours) Vital Signs Temp Pulse Resp BP Pulse Ox O2 Del Method 10/30/24 15:11 36.3 C L 66 16 121/72 97 Room Air 10/30/24 07:21 36.4 C L 72 16 134/78 97 Room Air Laboratory Results 10/30/24 10/30/24 10/30/24 Range/Units 16:32 11:02 07:22 WBC (4.8-10.8) K/ul RBC (4.70-6.10) M/uL Hgb (14.0-18.0) g/dl Hct (42.0-52.0) % MCV (80.0-100.0) fL MCH (25.0-34.0) pg MCHC (32.0-36.0) g/dL RDW Std Deviation (36.4-46.3) fL RDW Coeff of Courtney (11.5-14.5) % Plt Count (130-400) K/uL MPV (9.4-12.4) fL Immature Gran % (Auto) % Neut % (Auto) % Lymph % (Auto) % [place] % (Auto) % Eos % (Auto) % Baso % (Auto) % Neut # (Auto) (1.40-6.50) K/uL Lymph # (Auto) (1.20-3.40) K/uL [place] # (Auto) (0.11-0.59) K/uL Eos # (Auto) (0.00-0.50) K/uL Baso # (Auto) (0.00-0.20) K/uL Immature Gran # (Auto) (0.01-0.20) K/uL PT (9.0-12.0) Seconds INR (0.9-1.1) APTT (21-31) Seconds PTT Ratio Sodium (136-145) mmol/L Potassium (3.5-5.1) mmol/L Chloride (98-107) mmol/L Carbon Dioxide (21-32) mmol/L Anion Gap (3-11) BUN (6-23) mg/dl Creatinine (0.6-1.4) mg/dl Est Cr Clr Drug Dosing ml/min eGFR BUN/Creatinine Ratio (10-20) Glucose (70-99(Fasting)) mg/dl POC Glucose 166 H 254 H 93 (70-99) mg/dl Estimat Average Glucose mg/dl Hemoglobin A1c (4.5-5.6) % Osmolality (280-300) mOsm/kg Calcium (8.6-10.3) mg/dl Magnesium (1.7-2.4) mg/dl Total Bilirubin (0.2-1.0) mg/dl AST (13-39) U/L ALT (7-52) U/L Alkaline Phosphatase (34-104) U/L Troponin I High Sens (0-20) pg/ml Total Protein (6.0-8.3) gm/dl Albumin (3.4-5.0) gm/dl Globulin (2.5-4.0) gm/dl Albumin/Globulin Ratio (0.9-2) Procalcitonin (0-0.5) ng/ml TSH (0.300-4.500) uIu/ml Urine Color Urine Appearance (Clear) Urine pH (4.5-7.5) Ur Specific [place] (1.000-1.030) Urine Protein (Negative) Urine Glucose (UA) (Negative) Urine Ketones (Negative) Urine Blood (Negative) Urine Nitrite (Negative) Urine Bilirubin (Negative) Urine Urobilinogen (Negative) Ur Leukocyte Esterase (Negative) Urine Osmolality (500-800) mOsm/kg Ur Random Sodium mmol/L Nasal Screen MRSA (PCR) (Negative) Adenovirus (PCR) (NotDetected) B. pertussis DNA (PCR) (NotDetected) B.parapertussis DNA PCR (NotDetected) C. pneumoniae DNA (PCR) (NotDetected) Coronavirus OC43 (PCR) (NotDetected) Coronavirus HKU1 (PCR) (NotDetected) Coronavirus 229E (PCR) (NotDetected) SARS-CoV-2 (PCR) (NotDetected) Coronavirus NL63 (PCR) (NotDetected) Human Metapneumovir PCR (NotDetected) Influenza Type A (PCR) (NotDetected) Influenza Type B (PCR) (NotDetected) M. pneumoniae (PCR) (NotDetected) Parainfluenza 1 (PCR) (NotDetected) Parainfluenza 2 (PCR) (NotDetected) Parainfluenza 3 (PCR) (NotDetected) Parainfluenza 4 (PCR) (NotDetected) RSV (PCR) (NotDetected) Entero/Rhino (PCR) (NotDetected) 10/30/24 10/29/24 10/29/24 Range/Units 05:48 Unknown 20:28 WBC (4.8-10.8) K/ul RBC (4.70-6.10) M/uL Hgb (14.0-18.0) g/dl Hct (42.0-52.0) % MCV (80.0-100.0) fL MCH (25.0-34.0) pg MCHC (32.0-36.0) g/dL RDW Std Deviation (36.4-46.3) fL RDW Coeff of Courtney (11.5-14.5) % Plt Count (130-400) K/uL MPV (9.4-12.4) fL Immature Gran % (Auto) % Neut % (Auto) % Lymph % (Auto) % [place] % (Auto) % Eos % (Auto) % Baso % (Auto) % Neut # (Auto) (1.40-6.50) K/uL Lymph # (Auto) (1.20-3.40) K/uL [place] # (Auto) (0.11-0.59) K/uL Eos # (Auto) (0.00-0.50) K/uL Baso # (Auto) (0.00-0.20) K/uL Immature Gran # (Auto) (0.01-0.20) K/uL PT (9.0-12.0) Seconds INR (0.9-1.1) APTT (21-31) Seconds PTT Ratio Sodium 133 L (136-145) mmol/L Potassium 4.3 (3.5-5.1) mmol/L Chloride 100 (98-107) mmol/L Carbon Dioxide 29 (21-32) mmol/L Anion Gap 4 (3-11) BUN 21 (6-23) mg/dl Creatinine 0.99 (0.6-1.4) mg/dl Est Cr Clr Drug Dosing 53.2 ml/min eGFR 73.73 BUN/Creatinine Ratio 21.2 H (10-20) Glucose 99 (70-99(Fasting)) mg/dl POC Glucose 120 H (70-99) mg/dl Estimat Average Glucose mg/dl Hemoglobin A1c (4.5-5.6) % Osmolality (280-300) mOsm/kg Calcium 8.6 (8.6-10.3) mg/dl Magnesium (1.7-2.4) mg/dl Total Bilirubin (0.2-1.0) mg/dl AST (13-39) U/L ALT (7-52) U/L Alkaline Phosphatase (34-104) U/L Troponin I High Sens (0-20) pg/ml Total Protein (6.0-8.3) gm/dl Albumin (3.4-5.0) gm/dl Globulin (2.5-4.0) gm/dl Albumin/Globulin Ratio (0.9-2) Procalcitonin (0-0.5) ng/ml TSH 4.269 (0.300-4.500) uIu/ml Urine Color Yellow Urine Appearance Clear (Clear) Urine pH 5.5 (4.5-7.5) Ur Specific [place] 1.045 H (1.000-1.030) Urine Protein Negative (Negative) Urine Glucose (UA) 2+ H (Negative) Urine Ketones Trace H (Negative) Urine Blood Negative (Negative) Urine Nitrite Negative (Negative) Urine Bilirubin Negative (Negative) Urine Urobilinogen Positive H (Negative) Ur Leukocyte Esterase Negative (Negative) Urine Osmolality 630 (500-800) mOsm/kg Ur Random Sodium 89 mmol/L Nasal Screen MRSA (PCR) (Negative) Adenovirus (PCR) (NotDetected) B. pertussis DNA (PCR) (NotDetected) B.parapertussis DNA PCR (NotDetected) C. pneumoniae DNA (PCR) (NotDetected) Coronavirus OC43 (PCR) (NotDetected) Coronavirus HKU1 (PCR) (NotDetected) Coronavirus 229E (PCR) (NotDetected) SARS-CoV-2 (PCR) (NotDetected) Coronavirus NL63 (PCR) (NotDetected) Human Metapneumovir PCR (NotDetected) Influenza Type A (PCR) (NotDetected) Influenza Type B (PCR) (NotDetected) M. pneumoniae (PCR) (NotDetected) Parainfluenza 1 (PCR) (NotDetected) Parainfluenza 2 (PCR) (NotDetected) Parainfluenza 3 (PCR) (NotDetected) Parainfluenza 4 (PCR) (NotDetected) RSV (PCR) (NotDetected) Entero/Rhino (PCR) (NotDetected) 10/29/24 10/29/24 10/29/24 Range/Units 16:37 11:40 07:16 WBC (4.8-10.8) K/ul RBC (4.70-6.10) M/uL Hgb (14.0-18.0) g/dl Hct (42.0-52.0) % MCV (80.0-100.0) fL MCH (25.0-34.0) pg MCHC (32.0-36.0) g/dL RDW Std Deviation (36.4-46.3) fL RDW Coeff of Courtney (11.5-14.5) % Plt Count (130-400) K/uL MPV (9.4-12.4) fL Immature Gran % (Auto) % Neut % (Auto) % Lymph % (Auto) % [place] % (Auto) % Eos % (Auto) % Baso % (Auto) % Neut # (Auto) (1.40-6.50) K/uL Lymph # (Auto) (1.20-3.40) K/uL [place] # (Auto) (0.11-0.59) K/uL Eos # (Auto) (0.00-0.50) K/uL Baso # (Auto) (0.00-0.20) K/uL Immature Gran # (Auto) (0.01-0.20) K/uL PT (9.0-12.0) Seconds INR (0.9-1.1) APTT (21-31) Seconds PTT Ratio Sodium (136-145) mmol/L Potassium (3.5-5.1) mmol/L Chloride (98-107) mmol/L Carbon Dioxide (21-32) mmol/L Anion Gap (3-11) BUN (6-23) mg/dl Creatinine (0.6-1.4) mg/dl Est Cr Clr Drug Dosing ml/min eGFR BUN/Creatinine Ratio (10-20) Glucose (70-99(Fasting)) mg/dl POC Glucose 117 H 190 H 143 H (70-99) mg/dl Estimat Average Glucose mg/dl Hemoglobin A1c (4.5-5.6) % Osmolality (280-300) mOsm/kg Calcium (8.6-10.3) mg/dl Magnesium (1.7-2.4) mg/dl Total Bilirubin (0.2-1.0) mg/dl AST (13-39) U/L ALT (7-52) U/L Alkaline Phosphatase (34-104) U/L Troponin I High Sens (0-20) pg/ml Total Protein (6.0-8.3) gm/dl Albumin (3.4-5.0) gm/dl Globulin (2.5-4.0) gm/dl Albumin/Globulin Ratio (0.9-2) Procalcitonin (0-0.5) ng/ml TSH (0.300-4.500) uIu/ml Urine Color Urine Appearance (Clear) Urine pH (4.5-7.5) Ur Specific [place] (1.000-1.030) Urine Protein (Negative) Urine Glucose (UA) (Negative) Urine Ketones (Negative) Urine Blood (Negative) Urine Nitrite (Negative) Urine Bilirubin (Negative) Urine Urobilinogen (Negative) Ur Leukocyte Esterase (Negative) Urine Osmolality (500-800) mOsm/kg Ur Random Sodium mmol/L Nasal Screen MRSA (PCR) (Negative) Adenovirus (PCR) (NotDetected) B. pertussis DNA (PCR) (NotDetected) B.parapertussis DNA PCR (NotDetected) C. pneumoniae DNA (PCR) (NotDetected) Coronavirus OC43 (PCR) (NotDetected) Coronavirus HKU1 (PCR) (NotDetected) Coronavirus 229E (PCR) (NotDetected) SARS-CoV-2 (PCR) (NotDetected) Coronavirus NL63 (PCR) (NotDetected) Human Metapneumovir PCR (NotDetected) Influenza Type A (PCR) (NotDetected) Influenza Type B (PCR) (NotDetected) M. pneumoniae (PCR) (NotDetected) Parainfluenza 1 (PCR) (NotDetected) Parainfluenza 2 (PCR) (NotDetected) Parainfluenza 3 (PCR) (NotDetected) Parainfluenza 4 (PCR) (NotDetected) RSV (PCR) (NotDetected) Entero/Rhino (PCR) (NotDetected) 10/29/24 10/29/24 10/28/24 Range/Units 06:54 06:51 22:33 WBC (4.8-10.8) K/ul RBC (4.70-6.10) M/uL Hgb (14.0-18.0) g/dl Hct (42.0-52.0) % MCV (80.0-100.0) fL MCH (25.0-34.0) pg MCHC (32.0-36.0) g/dL RDW Std Deviation (36.4-46.3) fL RDW Coeff of Courtney (11.5-14.5) % Plt Count (130-400) K/uL MPV (9.4-12.4) fL Immature Gran % (Auto) % Neut % (Auto) % Lymph % (Auto) % [place] % (Auto) % Eos % (Auto) % Baso % (Auto) % Neut # (Auto) (1.40-6.50) K/uL Lymph # (Auto) (1.20-3.40) K/uL [place] # (Auto) (0.11-0.59) K/uL Eos # (Auto) (0.00-0.50) K/uL Baso # (Auto) (0.00-0.20) K/uL Immature Gran # (Auto) (0.01-0.20) K/uL PT (9.0-12.0) Seconds INR (0.9-1.1) APTT (21-31) Seconds PTT Ratio Sodium 135 L (136-145) mmol/L Potassium 4.1 (3.5-5.1) mmol/L Chloride 100 (98-107) mmol/L Carbon Dioxide 27 (21-32) mmol/L Anion Gap 8 (3-11) BUN 18 (6-23) mg/dl Creatinine 0.91 (0.6-1.4) mg/dl Est Cr Clr Drug Dosing 57.8 ml/min eGFR 81.57 BUN/Creatinine Ratio 19.8 (10-20) Glucose 126 H (70-99(Fasting)) mg/dl POC Glucose 159 H (70-99) mg/dl Estimat Average Glucose 203 mg/dl Hemoglobin A1c 8.7 H (4.5-5.6) % Osmolality (280-300) mOsm/kg Calcium 8.8 (8.6-10.3) mg/dl Magnesium (1.7-2.4) mg/dl Total Bilirubin (0.2-1.0) mg/dl AST (13-39) U/L ALT (7-52) U/L Alkaline Phosphatase (34-104) U/L Troponin I High Sens (0-20) pg/ml Total Protein (6.0-8.3) gm/dl Albumin (3.4-5.0) gm/dl Globulin (2.5-4.0) gm/dl Albumin/Globulin Ratio (0.9-2) Procalcitonin (0-0.5) ng/ml TSH (0.300-4.500) uIu/ml Urine Color Urine Appearance (Clear) Urine pH (4.5-7.5) Ur Specific [place] (1.000-1.030) Urine Protein (Negative) Urine Glucose (UA) (Negative) Urine Ketones (Negative) Urine Blood (Negative) Urine Nitrite (Negative) Urine Bilirubin (Negative) Urine Urobilinogen (Negative) Ur Leukocyte Esterase (Negative) Urine Osmolality (500-800) mOsm/kg Ur Random Sodium mmol/L Nasal Screen MRSA (PCR) (Negative) Adenovirus (PCR) (NotDetected) B. pertussis DNA (PCR) (NotDetected) B.parapertussis DNA PCR (NotDetected) C. pneumoniae DNA (PCR) (NotDetected) Coronavirus OC43 (PCR) (NotDetected) Coronavirus HKU1 (PCR) (NotDetected) Coronavirus 229E (PCR) (NotDetected) SARS-CoV-2 (PCR) (NotDetected) Coronavirus NL63 (PCR) (NotDetected) Human Metapneumovir PCR (NotDetected) Influenza Type A (PCR) (NotDetected) Influenza Type B (PCR) (NotDetected) M. pneumoniae (PCR) (NotDetected) Parainfluenza 1 (PCR) (NotDetected) Parainfluenza 2 (PCR) (NotDetected) Parainfluenza 3 (PCR) (NotDetected) Parainfluenza 4 (PCR) (NotDetected) RSV (PCR) (NotDetected) Entero/Rhino (PCR) (NotDetected) 10/28/24 10/28/24 10/28/24 Range/Units 20:42 18:58 16:14 WBC 5.29 (4.8-10.8) K/ul RBC 4.88 (4.70-6.10) M/uL Hgb 15.5 (14.0-18.0) g/dl Hct 44.9 (42.0-52.0) % MCV 92.0 (80.0-100.0) fL MCH 31.8 (25.0-34.0) pg MCHC 34.5 (32.0-36.0) g/dL RDW Std Deviation 45.0 (36.4-46.3) fL RDW Coeff of Courtney 13.2 (11.5-14.5) % Plt Count 203 (130-400) K/uL MPV 10.7 (9.4-12.4) fL Immature Gran % (Auto) 0.6 % Neut % (Auto) 66.1 % Lymph % (Auto) 15.1 % [place] % (Auto) 17.8 % Eos % (Auto) 0.2 % Baso % (Auto) 0.2 % Neut # (Auto) 3.50 (1.40-6.50) K/uL Lymph # (Auto) 0.80 L (1.20-3.40) K/uL [place] # (Auto) 0.94 H (0.11-0.59) K/uL Eos # (Auto) 0.01 (0.00-0.50) K/uL Baso # (Auto) 0.01 (0.00-0.20) K/uL Immature Gran # (Auto) 0.03 (0.01-0.20) K/uL PT 11.2 (9.0-12.0) Seconds INR 1.0 (0.9-1.1) APTT 27 (21-31) Seconds PTT Ratio 1.0 Sodium 130 L (136-145) mmol/L Potassium 5.1 (3.5-5.1) mmol/L Chloride 98 (98-107) mmol/L Carbon Dioxide 26 (21-32) mmol/L Anion Gap 6 (3-11) BUN 24 H (6-23) mg/dl Creatinine 1.12 (0.6-1.4) mg/dl Est Cr Clr Drug Dosing 47.0 ml/min eGFR 63.58 BUN/Creatinine Ratio 21.4 H (10-20) Glucose 286 H (70-99(Fasting)) mg/dl POC Glucose (70-99) mg/dl Estimat Average Glucose mg/dl Hemoglobin A1c (4.5-5.6) % Osmolality 288 (280-300) mOsm/kg Calcium 8.8 (8.6-10.3) mg/dl Magnesium 1.7 (1.7-2.4) mg/dl Total Bilirubin 0.7 (0.2-1.0) mg/dl AST 28 (13-39) U/L ALT 20 (7-52) U/L Alkaline Phosphatase 109 H (34-104) U/L Troponin I High Sens 6.2 (0-20) pg/ml Total Protein 5.9 L (6.0-8.3) gm/dl Albumin 3.6 (3.4-5.0) gm/dl Globulin 2.3 L (2.5-4.0) gm/dl Albumin/Globulin Ratio 1.6 (0.9-2) Procalcitonin 0.18 (0-0.5) ng/ml TSH (0.300-4.500) uIu/ml Urine Color Urine Appearance (Clear) Urine pH (4.5-7.5) Ur Specific [place] (1.000-1.030) Urine Protein (Negative) Urine Glucose (UA) (Negative) Urine Ketones (Negative) Urine Blood (Negative) Urine Nitrite (Negative) Urine Bilirubin (Negative) Urine Urobilinogen (Negative) Ur Leukocyte Esterase (Negative) Urine Osmolality (500-800) mOsm/kg Ur Random Sodium mmol/L Nasal Screen MRSA (PCR) Negative (Negative) Adenovirus (PCR) Not Detected (NotDetected) B. pertussis DNA (PCR) Not Detected (NotDetected) B.parapertussis DNA PCR Not Detected (NotDetected) C. pneumoniae DNA (PCR) Not Detected (NotDetected) Coronavirus OC43 (PCR) Not Detected (NotDetected) Coronavirus HKU1 (PCR) Not Detected (NotDetected) Coronavirus 229E (PCR) Not Detected (NotDetected) SARS-CoV-2 (PCR) Not Detected (NotDetected) Coronavirus NL63 (PCR) Not Detected (NotDetected) Human Metapneumovir PCR Not Detected (NotDetected) Influenza Type A (PCR) Not Detected (NotDetected) Influenza Type B (PCR) Not Detected (NotDetected) M. pneumoniae (PCR) Not Detected (NotDetected) Parainfluenza 1 (PCR) Not Detected (NotDetected) Parainfluenza 2 (PCR) Not Detected (NotDetected) Parainfluenza 3 (PCR) Not Detected (NotDetected) Parainfluenza 4 (PCR) Not Detected (NotDetected) RSV (PCR) Not Detected (NotDetected) Entero/Rhino (PCR) Not Detected (NotDetected) Diagnostic Findings Chest CTA 10/28/24 16:19 CT pulmonary angiogram with IV contrast History: Dyspnea COMPARISON: 09/20/2024 TECHNIQUE: CT angiography of the chest was performed without IV contrast followed by IV contrast, including 3D post processing CTA image reconstruction. Dose reduction techniques were achieved by using automatic exposure control and/or adjustment of mA and/or kV according to patient size and/or use of iterative reconstruction technique. FINDINGS: Lungs and pleura: Right hilar mass is again partially visualized with surrounding atelectasis and right middle lobe collapse. Heart and pericardium: Heart size is normal. No pericardial effusion. Vessels: No evidence of pulmonary embolism. Mediastinum and ria: Unremarkable. Chest wall and lower neck: Unremarkable. Abdomen: Partial visualization of numerous hepatic hypodensities concerning for metastases. Bones: Degenerative changes in the thoracic spine. Degenerative changes of the shoulder joints. IMPRESSION: Similar-appearing right hilar mass with postobstructive atelectasis with right middle lobe collapse. No evidence for pulmonary embolism. Electronically signed by Edenilson Monreal 10-28-2024 7:10 PM Chest X-Ray 10/28/24 16:19 Chest radiograph, one view History: dyspnea Comparison: 06/08/2024 Findings: Single AP view of the chest performed. Continued opacity and fullness overlying the right infrahilar region. No pneumothorax. Median sternotomy wires. Status post CABG changes. The cardiomediastinal silhouette is within normal limits. Normal pulmonary vascularity. No evidence for lymphadenopathy. No visualized bony or soft tissue abnormality. Advanced degenerative changes of the glenohumeral joints. Impression: Continued opacity and fullness overlying the right infrahilar region. No acute process Electronically signed by Edenilson Monreal 10-28-2024 5:18 PM KUB X-Ray 10/30/24 16:04 INDICATION: Abdominal pain. TECHNIQUE: 4 views of the abdomen. COMPARISON: CT from 03/28/2024. FINDINGS: Mild to moderate amount retained colonic stool. Dilated small bowel loops in midabdomen. No free air. No pathologic calcifications. No acute osseous abnormality. IMPRESSION: 1. Dilated small bowel loops in midabdomen could relate to ileus or obstruction. Follow-up recommended. 2. Mild amount retained colonic stool. Electronically signed by Pedro Maldonado 10-30-2024 6:47 PM PG Care Time/CCT Total # of Minutes Spent Total Time Spent with Patient: Total time spent is greater than 50% in coordination of care (as documented) at patient's floor/unit and/or counseling patient: Advanced Care Planning 20034 Advanced Care Planning 30 [place] [address] IN/OBS CONSULT LVL 4,60M (25 - SIGNIFICANT, SEPARATELY IDENTIFIABLE ) Patient Type New Diagnoses Weakness generalized R53.1 Advanced care planning/counseling discussion Z71.89 Palliative care by specialist Z51.5 Carcinoid tumor of right lung D3A.090 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
[2024-10-30] MEDS: LORazepam 0.5 MG TAB PO SCH (21:12)
[2024-10-30] MEDS: PANTOprazole 40 MG TAB PO SCH (21:12)
[2024-10-31 06:42] LABS: BUN Creatinine Ratio 20.2 (10-20); Calcium 8.3 mg/dl (8.6-10.3); Creatinine Clr Calc Pharmacy 50.6 ml/min; Magnesium 1.6 mg/dl (1.7-2.4); Potassium 4.4 mmol/L (3.5-5.1)
[2024-10-31 07:50] VITALS: TEMP 97.7
[2024-10-31] MEDS: INSULIN ASPART PER UNIT CHARGE SC SCH ×2 (09:13→12:55)
[2024-10-31] MEDS: MAGNESIUM SULFATE / D5W 1 GM/100 ML BAG IV SCH (09:17)
[2024-10-31 09:52] VITALS: O2SAT 94
[2024-10-31] MEDS ORDERED: MINERAL OIL ENEMA 133 ML BTL PR PRN (10:23)
[2024-10-31 16:07] VITALS: BP 99/68; PULSE 68; RESP 14
[2024-10-31] MEDS: FAMCICLOVIR 500 MG PO SCH (17:39)
--- NOTE | 2024-10-31 19:32 | Hospitalist Progress Note ---
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 #Palliative discussion for carcinoid tumor R lung with mets - Presented with worsening SOB and weakness/weight loss/failure to thrive. 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 CT abd/pelvis 03/2024 with worsening multifocal hepatic metastatic disease. On monthly lanreotide, megestrol. s/p family meeting today - [address] Bishop from palliative care. Family requesting transition to hospice. 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 Plan to d/c to [facility] tomorrow with hospice in place. Offered audio engineer consult if desired by sons. 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 Serum osm 288 Urine osm high Urine Na high Defer on NaCl tabs due to transition to hospice #T2DM - stop all therapies; stop BSGs #HTN- Lisinopril, metoprolol - cont to hold #Hyperlipidemia - stop Atorvastatin #H/o CVA - stop ASA, plavix #abdominal pain - was likely constipation with mild gaseous distension/ileus from such; had BM yesterday; exam benign today and no c/o pain #Hypomagnesemia - gave 2 grams mag sulfate early this am prior to initiation of comfort measures VTE Prophylaxis: stop Lovenox support given to 2 sons at bedside dispo - [facility] with Hospice - hopefully 11/01 care d/w Dr Bishop via [place] Correspondence Admission and Anticipated Discharge Date Admission Date: October 28, 2024 Subjective patient very sleepy during the visit 2 sons at bedside sons met with Dr Bishop from palliative care this am sons agree to 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[employer] and transition to hospice at [facility] during the visit pt only able to tell me he is NOT having any abd pain today Review of Systems Review of Systems: Unobtainable due to cognitive status Physical Exam Physical Exam: gen - thin/cachectic, NAD; sleepy mouth - MMM neck - no JVD heart - RRR, s1 s2, no murmur lungs - CTA B/l abd - soft ND BS+; scaphoid abdomen; liver edge palpable; nontender today ext - no edema, pulses 2+ b/l - pascual in place Results & Data Results & Data Vital Signs (Past 12 Hours) Vital Signs Temp Pulse Resp BP Pulse Ox O2 Del Method 10/31/24 16:06 68 14 99/68 L 94 Room Air 10/31/24 09:51 90 113/78 94 Room Air 10/31/24 09:15 Room Air 10/31/24 07:49 36.5 C 108 H 18 97/64 L 92 Room Air Laboratory Results Laboratory Results - last 24 hr 10/31/24 10/31/24 10/31/24 06:00 07:53 11:25 Sodium 133 L Potassium 4.4 Chloride 99 Carbon Dioxide 26 Anion Gap 8 BUN 21 Creatinine 1.04 Est Cr Clr Drug Dosing 50.6 eGFR 69.49 BUN/Creatinine Ratio 20.2 H Glucose 123 H POC Glucose 126 H 225 H Calcium 8.3 L Magnesium 1.6 L PG Care Time/CCT Total # of Minutes Spent Total Time Spent with Patient: Total time spent is greater than 50% in coordination of care (as documented) at patient's floor/unit and/or counseling patient: Coding Level of Care Code 54814 SUB INP/OBS CARE 2/35MIN Diagnoses Carcinoid tumor of right lung D3A.090 Hyponatremia E87.1 Severe protein-calorie malnutrition E43 Abdominal pain R10.9 Diabetes E11.9 Coronary artery disease I25.10
[2024-10-31] MEDS: DOCUSATE SODIUM/SENNA 50/8.6MG TAB PO SCH (20:15)
[2024-10-31] MEDS: GANCICLOVIR 0.15% OPR SCH (20:16)
--- NOTE | 2024-11-01 15:09 | Palliative Care Progress Note ---
Date of Service November 01, 2024 Assessment & Plan (1) Palliative care by specialist: (2) Hospice care patient: Plan Pt transitioned to comfort directed directed care 10/30/24 with minimal PRN needs. plan for DC to [facility] for ongoing hospice care pending DME delivery. Expected discharge tomorrow 11/02/24. Admission and Anticipated Discharge Date Admission Date: October 28, 2024 Subjective Assessed pt at bedside, he was transitioned to [employer] on 10/30/24. Pt is sleeping comfortably comfortably, did not attempt to awaken in concert with comfort dir ected care. Respiratory effort Normal, rate 16/min. Son at bedside. Review of Systems Review of Systems: Unobtainable due to cognitive status Physical Exam Physical Exam: Constitutional: well developed and + ill appearing; no acute distress Eyes: PERRL, conjunctivae normal, anicteric sclerae ENMT: external ear and nose normal, oropharynx normal Neck: trachea midline, no thyromegaly Respiratory: normal respiratory effort; no respiratory distress and does not use accessory muscles Auscultation: lungs clear to auscultation bilaterally and + diminished lung sounds Cardiovascular: Rate/Rhythm: regular rate Extremities: + edema Neurologic: moves all extremities Pt sleeping soundly, did not arouse to verbal or gentle tactile stimuli Results & Data Vital Signs (Past 12 Hours) Vital Signs Temp 36.5 C 10/31/24 07:49 Pulse 68 10/31/24 16:06 Resp 14 10/31/24 16:06 BP 99/68 L 10/31/24 16:06 Pulse Ox 94 10/31/24 16:06 O2 Del Method Room Air 11/01/24 15:15 Intake & Output 11/01/24 11/01/24 11/02/24 06:59 18:59 06:59 Intake Total 340 / 340 Output Total 450 / 450 Balance -450 / -10 340 / 340 Intake: Oral 340 / 340 Output: Urine Amount (Catheter) 450 / 450 External 450 / 450 Laboratory Results No further labs or diagnostics in concert with comfort directed care. Diagnostic Findings No further labs or diagnostics in concert with comfort directed care. Medications Administered Current Inpatient Medications Acetaminophen (Acetaminophen 500 Mg Tab) 1,000 mg PO Q8H PRN PRN Reason: Pain or Fever Stop: 11/28/24 20:39 Last Admin: 11/01/24 15:10 Dose: 1,000 mg Buspirone HCl (Buspirone 5 Mg Tab) 5 mg PO TID PRN PRN Reason: Anxiety Stop: 11/27/24 21:41 Cetirizine HCl (Cetirizine Hcl 10 Mg Tablet) 10 mg PO DAILY TERRI Stop: 11/28/24 08:59 Last Admin: 11/01/24 08:44 Dose: 10 mg Dextrose (Dextrose 50% 50 Ml Syringe) 25 - 50 ml IV UD PRN; Protocol PRN Reason: Hypoglycemia Protocol Stop: 11/27/24 21:41 Famciclovir (Famciclovir 500 Mg Tab (Pom)) 500 mg PO DAILY TERRI Stop: 11/30/24 16:14 Last Admin: 11/01/24 08:43 Dose: 500 mg Ganciclovir (Ganciclovir .15% Opth Gel 1 Appl (Pom)) 1 appl OPR HS TERRI Stop: 11/30/24 20:59 Last Admin: 11/01/24 21:09 Dose: 1 appl Glucagon (Glucagon For Inj 1 Mg Vial) 1 mg SQ UD PRN; Protocol PRN Reason: Hypoglycemia Protocol Stop: 11/27/24 21:41 Glucose (Glucose 40% Gel 15 Gm Tube) 15 - 30 gm PO UD PRN; Protocol PRN Reason: Hypoglycemia Protocol Stop: 11/27/24 21:41 Glucose (Glucose 10 Tab/Tube) 4 - 8 tab PO UD PRN; Protocol PRN Reason: Hypoglycemia Protocol Stop: 11/27/24 21:41 Lorazepam (Lorazepam 0.5 Mg Tab) 0.25 mg PO BID TERRI Stop: 11/29/24 20:59 Last Admin: 11/01/24 21:08 Dose: 0.25 mg Megestrol Acetate (Megestrol Acetate 40 Mg Tab) 40 mg PO BID TERRI Stop: 11/27/24 21:59 Last Admin: 11/01/24 21:09 Dose: 40 mg Mineral Oil (Mineral Oil Enema 133 Ml Btl) 133 ml IN DAILY PRN PRN Reason: Constipation Stop: 11/30/24 10:22 Miscellaneous (Carbohydrates For Hypoglycemia ) 15 - 30 gm PO UD PRN PRN Reason: Hypoglycemia Protocol Stop: 11/27/24 21:41 Nitroglycerin (Nitroglycerin Sl 0.4 Mg/Tab Tab) 0.4 mg SL Q5M PRN PRN Reason: Chest Pain Stop: 11/27/24 21:41 Ondansetron HCl (Ondansetron Inj 2 Mg/Ml 2 Ml Vial) 4 mg IV Q6H PRN PRN Reason: Nausea And Vomiting Stop: 11/27/24 20:03 Pantoprazole Sodium (Pantoprazole 40 Mg Tab) 40 mg PO BID TERRI Stop: 11/29/24 20:59 Last Admin: 11/01/24 21:09 Dose: 40 mg Senna/Docusate Sodium (Docusate Sodium/Senna 50/8.6mg Tab) 2 tab PO BID TERRI Stop: 11/30/24 20:59 Last Admin: 11/01/24 21:09 Dose: 2 tab Timolol Maleate (Timolol Maleate 0.5% Op Soln 5 Ml Btl) 1 drops OPL BID [facility] Stop: 11/27/24 21:59 Last Admin: 11/01/24 21:09 Dose: 1 drops Trazodone HCl (Trazodone Hcl 50 Mg Tab) 50 mg PO HS [facility] Stop: 11/27/24 21:59 Last Admin: 11/01/24 21:09 Dose: 50 mg PG Care Time/CCT Total # of Minutes Spent Total Time Spent with Patient: Total time spent is greater than 50% in coordination of care (as documented) at patient's floor/unit and/or counseling patient: Coding [place] [address] SUB INP/OBS CARE 09/29MIN Patient Type Established History Problem Focused Exam Problem Focused Medical Decision Making Straight Forward Diagnoses Palliative care by specialist Z51.5 Hospice care patient Z51.5
--- NOTE | 2024-11-01 18:29 | Hospitalist Progress Note ---
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 #Palliative discussion for carcinoid tumor R lung with mets - Presented with worsening SOB and weakness/weight loss/failure to thrive. 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 CT abd/pelvis 03/2024 with worsening multifocal hepatic metastatic disease. On monthly lanreotide, megestrol. s/p family meeting 10/31 - sons met with Dr Bishop from palliative care. Family requesting transition to hospice. 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 all stopped. Plan to d/c to [facility] tomorrow with hospice in place (was to be today but hospital bed was not delivered in time). 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 Serum osm 288 Urine osm high Urine Na high Defer on NaCl tabs due to transition to hospice #T2DM - stopped all therapies; stopped BSGs #HTN- typically on Lisinopril, metoprolol - discontinued #Hyperlipidemia - stopped Atorvastatin #H/o CVA - stopped ASA, plavix #abdominal pain - constipation vs mild gaseous distension/ileus vs liver mets vs combination of factors; despite the pain he is eating his meals #Hypomagnesemia - repleted VTE Prophylaxis: stopped Lovenox updated pt's son at bedside today dispo - [facility] with Hospice - hopefully tomorrow 11/02 discharge prescriptions completed today discharge paper work completed Admission and Anticipated Discharge Date Admission Date: October 28, 2024 Subjective saw patient early afternoon son at bedside pt apparently had c/o abd pain earlier today despite such no nausea/emesis ate both breakfast & lunch -- 75% or more sleeping most of the day very weak son states "he has been sleepy like this for a couple of months" was to return to [place] today with Hospice however the hospital bed has not been delivered Review of Systems Review of Systems: Unobtainable due to cognitive status Physical Exam Physical Exam: gen - thin/cachectic, NAD; very sleepy - slept most of the encounter; when he wakens it is very hard to hear him; apneas noted during the visit but no snoring mouth - MMM neck - no JVD heart - RRR, s1 s2, no murmur lungs - CTA B/l abd - soft ND BS+; scaphoid abdomen; liver edge palpable; nontender ext - no edema, pulses 2+ b/l psych - lethargic Results & Data Results & Data Vital Signs (Past 12 Hours) Vital Signs O2 Del Method 11/01/24 15:15 Room Air PG Care Time/CCT Total # of Minutes Spent Total Time Spent with Patient: Total time spent is greater than 50% in coordination of care (as documented) at patient's floor/unit and/or counseling patient: Coding Level of Care Code 09328 SUB INP/OBS CARE 2/35MIN Diagnoses Carcinoid tumor of right lung D3A.090 Hyponatremia E87.1 Severe protein-calorie malnutrition E43 Abdominal pain R10.9 Diabetes E11.9 Coronary artery disease I25.10
[2024-11-02] MEDS: HYDROCODONE/ACETAMOPHEN 5/325MG TAB PO STA (12:11)
--- NOTE | 2024-11-05 09:11 | Discharge Summary ---
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 #Palliative discussion for carcinoid tumor R lung with mets - Presented with worsening SOB and weakness/weight loss/failure to thrive. 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 CT abd/pelvis 03/2024 with worsening multifocal hepatic metastatic disease. On monthly lanreotide, megestrol. s/p family meeting 10/31 - sons met with Dr Bishop from palliative care. Family requesting transition to hospice. 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 all stopped. Plan to d/c to [facility] tomorrow with hospice in place (was to be today but hospital bed was not delivered in time). 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 Serum osm 288 Urine osm high Urine Na high Defer on NaCl tabs due to transition to hospice #T2DM - stopped all therapies; stopped BSGs #HTN- typically on Lisinopril, metoprolol - discontinued #Hyperlipidemia - stopped Atorvastatin #H/o CVA - stopped ASA, plavix #abdominal pain - constipation vs mild gaseous distension/ileus vs liver mets vs combination of factors; despite the pain he is eating his meals #Hypomagnesemia - repleted VTE Prophylaxis: stopped Lovenox updated pt's son at bedside today dispo - [facility] with Hospice - hopefully tomorrow 11/02 discharge prescriptions completed today discharge paper work completed Admission HPI Per Admitting Provider 89-year-old male 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 States that the SOB and weakness has been ongoing for weeks, but it became more bothersome on the day of arrival so he decided to come in. States "I feel like I cannot breathe" with minimal activity which is worse from his baseline. Also feels generally weak, but denying syncope or dizziness. Patient's son notes that the patient has been unable to even get from sitting to standing without appearing winded and weak. Patient does not feel as though he is going to have a syncopal event and does not feel any dizziness. Does admit to occasional anorexia and abdominal pain, but none at the time of admission. Overall denying chest pain, palpitations, N/V/D/C, numbness/tingling, fever/chills, URI symptoms, or LUTS. Patient's son is in the room at time of visit. Both patient and his son are interested in discussing options for palliative care given patient's current condition. ED evaluation reveals no leukocytosis, normal H&H, normal PT/INR, sodium 130, BUN 24, ratio 21.4, alk phos 109, protein 5.9, globulin 2.3, Pro-Toño 0.18, BioFire pending; CXR with continued opacity and fullness over right infrahilar region, and CTA chest with similar appearing R hilar mass with postobstructive atelectasis RML collapse, no evidence of PE; EKG normal sinus rate 62 bpm. Most recent hospitalization 06/09/2024 until 06/14/2024 for acute ischemic stroke. Please see Dr. Hoff's attestation for adjustments/additions to treatment plan. Discharge Exam gen - thin/cachectic, NAD; very sleepy - slept most of the encounter; when he wakens it is very hard to hear him; apneas noted during the visit but no snoring mouth - MMM neck - no JVD heart - RRR, s1 s2, no murmur lungs - CTA B/l abd - soft ND BS+; scaphoid abdomen; liver edge palpable; nontender ext - no edema, pulses 2+ b/l psych - lethargic Discharge Plan Discharge Items Patient Disposition: Hospice - Medical Facility Reason For Visit: WEIGHT LOSS; SOB/WEAKNESS; LUNG CANCER Discharge Diagnosis: 1. stage 4 lung cancer 2. weakness/failure to thrive due to #1 3. shortness of breath - due to bronchospasm? Other? 4. abdominal pain - due to constipation and/or liver mets and/or gaseous distension vs combination of factors 5. weight loss/severe protein calorie malnutrition due to #1 6. hyponatremia Activity: As commented below Activity Comment: bedrest or out of bed to chair, if desired Non-emergency contact: Primary Care Provider Call non-emergency contact if: you have any medication questions and your pain is not controlled Follow-up/Referrals: Juan Alberto Valdez MD [Primary Care Provider] - Diet: Regular Addtl Attending Provider Instructions: Mr Carcamo was admitted due to shortness of breath, weakness, weight loss, failure to thrive, and abdominal pain. CTA chest did not show PEs or pneumonia. Cancer of the right lung was stable, but the cancer is causing chronic collapse of the right middle lobe. The latter could be contributing to his breathing difficulty at times. Weakness/weight loss/failure to thrive is likely all due to his cancer. Abdominal pain - possibly due to liver mets, possibly due to constipation, possibly due to gaseous distension. We did not pursue CT abd/pelvis during the stay given his transition to hospice. Despite his report of pain he was eating his meals prior to discharge back to [place]. He & his 2 sons met with the palliative care team at [facility]. Following discussions with Dr Christy Bishop from palliative care the patient's 2 sons have opted to initiated Hospice for Mr Carcamo. Thus, he is returning to [place] with Hospice in place. We have discontinued all diabetic medicines, discontinued fingerstick blood sugar checks, discontinued vitals, and stopped unnecessary medicines that won't provide comfort. Due to reported allergy to morphine I have prescribed norco (hydrocodone) for pain rather than Roxanol upon return to [place]. It was our pleasure to care for Mr Carcamo! -Dr Leon Pending Studies at Discharge: No Stand-Alone Forms: My [facility] Skilled Items Patient informed of condition?: Yes DNR: Yes Discharge Level of Care: Other Communicable Disease: No Discharge Prognosis: Deteriorating Lines: None Urinary Catheter: No Medications and DC Order Prescriptions: New sennosides-docusate sodium [Senokot-S] 8.6-50 mg Tablet 2 tab PO BID Qty: 60 0RF lorazepam 0.5 mg Tablet 0.25 mg PO BID Qty: 30 0RF pantoprazole 40 mg Tablet,Delayed Release (Dr/Ec) 40 mg PO DAILY Qty: 30 0RF ondansetron 4 mg tablet,disintegrating 4 mg PO Q6H PRN (Reason: nausea and vomiting) Qty: 14 0RF hydrocodone-acetaminophen 5-325 mg tablet 1 tab PO Q4H PRN (Reason: pain ) Qty: 20 0RF lorazepam [Ativan] 0.5 mg tablet 0.25 mg PO Q6H PRN (Reason: anxiety, sleep, agitation) Qty: 20 0RF Continued nitroglycerin 0.4 mg tablet, sublingual 0.4 mg sublingual Q5M PRN (Reason: Chest Pain) Rx Instructions: do not exceed 3 doses per episode timolol 0.5 % drops 1 drp OPL BID Zyrtec 10 mg capsule 10 mg PO DAILY famciclovir 500 mg Tablet 500 mg PO DAILY trazodone 50 mg tablet 50 mg PO HS buspirone 5 mg tablet 5 mg PO TID PRN (Reason: Anxiety) Zirgan 0.15 % gel 1 ea OPR HS Rx Instructions: 1/2 inch ribbon dose to right eye at bedtime Discontinued atorvastatin 10 mg tablet 10 mg PO DAILY metoprolol succinate 25 mg tablet extended release 24 hr 25 mg PO DAILY metformin 500 mg tablet 500 mg PO TID clopidogrel 75 mg Tablet 75 mg PO QAM Qty: 3 0RF lisinopril 2.5 mg Tablet 2.5 mg PO QAM Qty: 30 0RF aspirin,buffd-calcium carb-mag [Tri-Buffered Aspirin] 325 mg Tablet 325 mg PO DAILY nateglinide 120 mg tablet 120 mg PO AC Rx Instructions: HOLD DOSE IF MEAL IS MISSED megestrol 40 mg Tablet 40 mg PO BID Discharge Orders: Discharge Order (Routine); Ordered 11/02/24 Ordered By: Trey Leon Admission Data Admit Date/Time: 10/28/24 19:46 Attending Provider: Trey Leon Admit Provider: Gay García Primary Care Provider: Juan Alberto Valdez Other Providers: Conrad Hoff; Shameka Mohamud; Lucy Bishop; IRB Approved Study,[facility] Stay Data Consultations 10/28/24 19:20 ED Decision to Admit Stat 10/28/24 21:42 Consult Palliative Care Routine Diagnostic Imagining Performed 10/28/24 16:19 CT angio chest PE protocol Stat Pending Results Patient Have Any Pending Studies at Discharge: No Discharge Instructions Given to Patient (Per Discharging Provider) Mr Carcamo was admitted due to shortness of breath, weakness, weight loss, failure to thrive, and abdominal pain. CTA chest did not show PEs or pneumonia. Cancer of the right lung was stable, but the cancer is causing chronic collapse of the right middle lobe. The latter could be contributing to his breathing difficulty at times. Weakness/weight loss/failure to thrive is likely all due to his cancer. Abdominal pain - possibly due to liver mets, possibly due to constipation, possibly due to gaseous distension. We did not pursue CT abd/pelvis during the stay given his transition to hospice. Despite his report of pain he was eating his meals prior to discharge back to [place]. He & his 2 sons met with the palliative care team at [facility]. Following discussions with Dr Christy Bishop from palliative care the patient's 2 sons have opted to initiated Hospice for Mr Carcamo. Thus, he is returning to [place] with Hospice in place. We have discontinued all diabetic medicines, discontinued fingerstick blood sugar checks, discontinued vitals, and stopped unnecessary medicines that won't provide comfort. Due to reported allergy to morphine I have prescribed norco (hydrocodone) for p ain rather than Roxanol upon return to [place]. It was our pleasure to care for Mr Carcamo! -Dr Leon Coding Diagnoses Carcinoid tumor of right lung D3A.090 Hyponatremia E87.1 Severe protein-calorie malnutrition E43 Abdominal pain R10.9 Diabetes E11.9 Coronary artery disease I25.10
== END 2024-11-02 13:44 | disposition hospice, home (50) | DRG 951 ==
LOC: ED 16:07 → EDINP 19:46 → SUATTDRO 19:46 → 3E 21:41